=== PATIENT | female | born 1955 | race Caucasian/White ===

== ENCOUNTER 2022-11-08 07:05 | Observation (INO) ==
--- NOTE | 2022-09-14 10:58 | PAT Medication Instructions ---
Medication Instructions Date of Service September 14, 2022 Home Medications Medication Instructions Recorded albuterol sulfate 90 mcg/actuation 2 puff inhalation Q6H PRN 10/06/21 aerosol inhaler (Ventolin HFA) shortness of breath #18 grams metformin 500 mg tablet 500 mg PO BID #60 tabs 01/26/22 atorvastatin 10 mg tablet 10 mg PO QPM #90 tabs 07/02/22 meclizine 12.5 mg tablet 12.5 mg PO TID PRN dizziness #30 08/07/22 tabs tlxgxupnwwkg-lrjovejl-mxbdxn tablet 1 tab PO QAM cholecalciferol (vitamin D3) 50 mcg (2,000 unit) capsule 50 mcg PO QAM aspirin 81 mg tablet,delayed release 81 mg PO DAILY PRN albuterol sulfate 90 mcg/actuation aerosol inhaler (Ventolin HFA) 2 puff inhalation Q6H PRN metformin 500 mg tablet 500 mg PO BID atorvastatin 10 mg tablet 10 mg PO QPM meclizine 12.5 mg tablet 12.5 mg PO TID PRN famotidine 40 mg tablet 40 mg PO DAILY PRN lisinopril 10 mg tablet 10 mg PO QAM Continue as directed meclizine 12.5 mg tablet 12.5 mg PO TID PRN(if needed) DO NOT take the morning of surgery ycmqdnzdftan-prehezem-prezpt tablet 1 tab PO QAM cholecalciferol (vitamin D3) 50 mcg (2,000 unit) capsule 50 mcg PO QAM metformin 500 mg tablet 500 mg PO BID lisinopril 10 mg tablet 10 mg PO QAM Take morning of surgery With a small sip of water, OTHERWISE NOTHING TO EAT OR DRINK AFTER MIDNIGHT: aspirin 81 mg tablet,delayed release 81 mg PO DAILY PRN(unless directed otherwise by surgeon) albuterol sulfate 90 mcg/actuation aerosol inhaler (Ventolin HFA) 2 puff inhalation Q6H PRN(use if needed; please bring with you to hospital day of surgery if possible) famotidine 40 mg tablet 40 mg PO DAILY PRN(if needed) Take evening before surgery albuterol sulfate 90 mcg/actuation aerosol inhaler (Ventolin HFA) 2 puff inhalation Q6H PRN(if needed) metformin 500 mg tablet 500 mg PO BID atorvastatin 10 mg tablet 10 mg PO QPM Other Notes If you have any questions please call us at [phone] or [phone] or [phone] or [phone]
--- NOTE | 2022-09-17 14:22 | Anesthesiology Consultation ---
Date of Service September 17, 2022 Assessment & Plan (1) Encounter for pre-operative examination: - check BSG am DOS. - dyspnea with usual activities, case discussed in detail with Dr. Brooke who advised pt to have PCP clearance overall including dyspnea with usual activities. Awaiting PCP clearance. - abnormal UA, several day duration intermittent left sided low back pain: per staff with PCP, Dr. Ahmadi is reviewing sent workload note and will further address with patient. Pt made aware. - awareness with multiple procedures. Pt states also has high tolerance for pain medications requiring more doses for surgical procedures/dental procedures and requests consideration of this by anesthesiologist and surgeon. - Outpatient joint assessment: Patient is currently scheduled for inpatient pathway. If re-evaluated pending system levels during current pandemic/surgeon requests outpatient pathway, patient is not acceptable candidate for outpatient joint program from anesthesia standpoint. Chart Review Chart Review: Pending: Refer to Additional Notes / Consult section and Patient seen in Pre Admission Testing Teaching & Discussion Pre-Anesthesia Teaching/Discussion Notes: Instructed NPO after midnight before surgery, except medications with 15 cc of water. Medication instructions provided according to the PAT guidelines. History Surgery Operation Date: 10/04/22 12:25 Proposed Procedures p Right Anatomic or Reverse Shoulder Arthroplasty - Jevon Centeno MD Height/Weight Height: 5 ft Weight: 117.8 kg Allergies Allergy/AdvReac Type Severity Reaction Status Date / Time metronidazole Allergy Unknown Hives Verified 09/14/22 09:53 Sulfa (Sulfonamide Allergy Unknown Hives Verified 09/14/22 09:53 Antibiotics) Penicillins AdvReac Intermediate Rash Verified 09/14/22 09:53 ibuprofen AdvReac Mild Hives Verified 09/14/22 09:53 clarithromycin AdvReac Unknown Hives Unverified 09/14/22 09:53 fluoroquinolones Allergy Unknown Unknown Uncoded 09/14/22 09:53 Medications Home Medications Medication Instructions Recorded Confirmed Last Taken rpjrspwtxumh-xaqoznkj-tolitz tablet 1 tab PO QAM 03/03/19 09/14/22 Unknown cholecalciferol (vitamin D3) 50 50 mcg PO QAM 07/07/21 09/14/22 Unknown mcg (2,000 unit) capsule aspirin 81 mg tablet,delayed 81 mg PO DAILY PRN Pain 07/30/21 09/14/22 Unknown release albuterol sulfate 90 mcg/actuation 2 puff inhalation Q6H PRN 10/06/21 09/14/22 Unknown aerosol inhaler (Ventolin HFA) shortness of breath #18 grams metformin 500 mg tablet 500 mg PO BID #60 tabs 01/26/22 09/14/22 Unknown atorvastatin 10 mg tablet 10 mg PO QPM #90 tabs 07/02/22 09/14/22 Unknown meclizine 12.5 mg tablet 12.5 mg PO TID PRN dizziness #30 08/07/22 09/14/22 Unknown tabs famotidine 40 mg tablet 40 mg PO DAILY PRN gerd 09/14/22 09/14/22 Unknown lisinopril 10 mg tablet 10 mg PO QAM 09/14/22 09/14/22 Unknown Past Medical History Medical History (Updated 09/17/22 @ 14:38 by Estrellita Ponce PA-C) Asthma rare use of PRN inh-last use > 2 yrs Chronic back pain DM type 2 (diabetes mellitus, type 2) NIDDM GERD (gastroesophageal reflux disease) controlled, stable per pt History of blood transfusion History of kidney stones History of uterine cancer 5 years ago. treated surgically HLD (hyperlipidemia) HTN (hypertension) controlled, stable per pt Morbid obesity with BMI of 50.0-59.9, adult PONV (postoperative nausea and vomiting) denies needing scop patch Slow to wake up after anesthesia Patient denies h/o stroke, seizures, heart attack, heart failure, or blood clots. Exercise / Class Metabolic Activity III < 4 Walking/Shop/Light housework (SOB with usual activities ongoing x 1 yr; denies change or worsening; denies chest discomfort) Past Family History Family History Mother Alcohol abuse Father FH: kidney cancer Brother FH: kidney cancer Drug abuse Alcohol abuse Grandmother Cancer Uterine Uterine cancer Grandfather Diabetes Heart disease Sister PONV (postoperative nausea and vomiting) Slow to wake up after anesthesia Daughter PONV (postoperative nausea and vomiting) Denies family history of Ovarian cancer Prostate cancer Myocardial infarction Breast cancer Colorectal cancer Past Surgical History Surgical History History of ankle surgery Rt - cyst removal History of carpal tunnel release of both wrists History of colonoscopy History of cystoscopy History of lithotripsy History of open reduction and internal fixation (ORIF) procedure Rt wrist History of total abdominal hysterectomy and bilateral salpingo-oophorectomy Hx of nephrolithotomy with removal of calculi Status post breast reduction Past Anesthesia History Other (pt reports awareness during multiple procedures; sister and daughter with PONV) History of PONV No Hx of Motion Sickness and History of PONV (denies needing scop patch) Social History Smoking Status: Never smoker Do You Dip or Chew Tobacco: No Hx Alcohol Use: Yes Alcohol type: wine alcohol intake frequency: other Alcohol Intake Frequency Comment: once a month Hx Substance Use: No substance use type: does not use Review of Systems Pt reports several day duration of intermittent dull left sided back pain 03/09 when occurs which is like her usual "kidney stone pain" denies pain radiation, fever, chills, nausea, vomiting, abdominal pain, hematuria or dysuria. She states plans to f/u with PCP today. She denies pain currently. Occasional snoring, denies witnessed apneas. Patient denies chest pain, fever, chills, cough, wheezing, or palpitations. Physical Exam Vital Signs Vitals BP 120/80 P 71 TEMP 98.3 SP02 100% on RA RESP 18 Physical Full cervical extension range of motion without pain TMD < 3 finger breadths Mallampati Score 3 Dentition: intact, one chipped front upper tooth and multiple missing teeth; denies loose teeth, caps/crowns, implants or bridges Lungs: normal respiratory effort. Clear throughout to auscultation, no adventitious breath sounds Cardiac: regular rate and rhythm, no murmurs noted Carotid arteries: negative bruit bilat Lab Results Anesthesia Preop Results Results Anesthesia Widget: WBC 7.33 K/ul (4.8-10.8) 09/17/22 Hgb 14.1 g/dl (12.0-16.0) 09/17/22 Hct 42.3 % (34.1-44.9) 09/17/22 Plt 229 K/uL (130-400) 09/17/22 Na 144 mmol/L (136-145) 09/17/22 K 4.6 mmol/L (3.5-5.1) 09/17/22 Cl 112 mmol/L (98-107) H 09/17/22 CO2 25 mmol/L (21-32) 09/17/22 BUN 22 mg/dl (6-23) 09/17/22 Creat 1.54 mg/dl (0.6-1.2) H 09/17/22 Glucose Level 99 mg/dl (70-99(Fasting)) 09/17/22 PT 10.3 Seconds (9.0-12.0) 09/17/22 PTT 24.7 Seconds (21.0-31.0) 09/17/22 INR 1.0 (0.9-1.1) 09/17/22 HA1c 6.3 % (4.5-5.6) H 09/17/22 Urine Color Yellow 09/17/22 Urine Appearance Cloudy (Clear) A 09/17/22 Urine pH 5.0 (4.5-7.5) 09/17/22 Urine Specific [place] 1.015 (1.000-1.030) 09/17/22 Urine Protein Negative (Negative) 09/17/22 Urine Glucose (UA) Negative (Negative) 09/17/22 Urine Ketones Negative (Negative) 09/17/22 Urine Blood Negative (Negative) 09/17/22 Urine Nitrite Negative (Negative) 09/17/22 Urine Bilirubin Negative (Negative) 09/17/22 Urine Urobilinogen Negative (Negative) 09/17/22 Urine Leukocyte Esterase 2+ (Negative) H 09/17/22 Urine WBC (Auto) >30 /hpf (0-5) H 09/17/22 Urine RBC (Auto) 0-4 /hpf (0-4) 09/17/22 Urine Hyaline Casts (Auto) 1-5 /lpf (0-5) 09/17/22 Urine Epithelial Cells (Auto) 20-30 /lpf (0-5) H 09/17/22 Urine Bacteria (Auto) 4+ (Negative) H 09/17/22 Blood Type O Positive 09/17/22 Antibody Screen NEGATIVE 09/17/22 Testing Electrocardiogram Date: 09/17/22 NSR, rate 70 bpm Nonspecific T wave abnormality Chest X-Ray Date: 09/17/22 The lungs are clear. Cardiac silhouette is normal in size. No pleural effusions. No pneumothorax. IMPRESSION: No acute process. COVID-19 Risk Screen Screening Information COVID-19 Screen Date: 09/17/22 Exposure 21 Days Family/Household +COVID Last 21 Days: No Exposure 10 Days Any COVID Exposure Last 10 Days: No Symptoms Last 10 Days Experienced COVID Sx Last 10 Days: No + COVID 0-90 Days COVID + in Last 0-90 Days: No
--- NOTE | 2022-11-07 21:29 | History & Physical Report ---
Date of Service November 07, 2022 Assessment & Plan (1) Right rotator cuff tear arthropathy: We reviewed her medical history. She was cleared by her primary care physician. She wants to proceed with the planned procedure of right reverse total shoulder arthroplasty with concomitant biceps tenodesis. Informed consent was reviewed and confirmed. History of Present Illness Chief Complaint: Right shoulder pain and rotator cuff dysfunction Primary Care Provider: Sherly Ahmadi MD 67-year-old female with multiple manage medical problems presents with persi stent and progressive right shoulder pain despite over a year multimodal nonoperative management. At her last visit in August, she had rotator cuff dysfunction and persistent pain, with an MRI showing rotator cuff arthropathy. I did offer elective reverse total shoulder arthroplasty to address her symptoms. She wants to proceed with that option. No changes to her health history since August. She has been cleared by her primary care physician. Allergies Allergy/AdvReac Type Severity Reaction Status Date / Time ciprofloxacin Allergy Unknown Unknown Verified 11/06/22 06:28 metronidazole Allergy Unknown Hives Verified 10/05/22 15:10 Sulfa (Sulfonamide Allergy Unknown Hives Verified 10/05/22 15:10 Antibiotics) Penicillins AdvReac Intermediate Rash Verified 10/05/22 15:10 ibuprofen AdvReac Mild Hives Verified 10/05/22 15:10 clarithromycin AdvReac Unknown Hives Unverified 10/05/22 15:10 Home Medications Medication Instructions Recorded Confirmed Type wtgqtotxclzg-vilybtjx-eurfud tablet 1 tab PO QAM 03/03/19 10/05/22 History cholecalciferol (vitamin D3) 50 50 mcg PO QAM 07/07/21 10/05/22 History mcg (2,000 unit) capsule aspirin 81 mg tablet,delayed 81 mg PO DAILY PRN Pain 07/30/21 10/05/22 History release albuterol sulfate 90 mcg/actuation 2 puff inhalation Q6H PRN 10/06/21 10/05/22 Rx aerosol inhaler (Ventolin HFA) shortness of breath #18 grams atorvastatin 10 mg tablet 10 mg PO QPM #90 tabs 07/02/22 10/05/22 Rx famotidine 40 mg tablet 40 mg PO DAILY PRN gerd 09/14/22 10/05/22 History lisinopril 10 mg tablet 10 mg PO QAM 09/14/22 10/05/22 History metformin 500 mg tablet 500 mg PO BID #60 tabs 09/20/22 10/05/22 Rx meclizine 12.5 mg tablet 12.5 mg PO TID PRN dizziness #30 09/28/22 10/05/22 Rx tabs Past Med/Surg History Medical History Asthma rare use of PRN inh-last use > 2 yrs Chronic back pain DM type 2 (diabetes mellitus, type 2) NIDDM GERD (gastroesophageal reflux disease) controlled, stable per pt History of blood transfusion History of kidney stones History of uterine cancer 5 years ago. treated surgically HLD (hyperlipidemia) HTN (hypertension) controlled, stable per pt Morbid obesity with BMI of 50.0-59.9, adult PONV (postoperative nausea and vomiting) denies needing scop patch Slow to wake up after anesthesia Surgical History History of ankle surgery Rt - cyst removal History of carpal tunnel release of both wrists History of colonoscopy History of cystoscopy History of lithotripsy History of open reduction and internal fixation (ORIF) procedure Rt wrist History of total abdominal hysterectomy and bilateral salpingo-oophorectomy Hx of nephrolithotomy with removal of calculi Status post breast reduction Family History Mother Alcohol abuse Father FH: kidney cancer Brother FH: kidney cancer Drug abuse Alcohol abuse Grandmother Cancer Uterine Uterine cancer Grandfather Diabetes Heart disease Sister PONV (postoperative nausea and vomiting) Slow to wake up after anesthesia Daughter PONV (postoperative nausea and vomiting) Denies family history of Ovarian cancer Prostate cancer Myocardial infarction Breast cancer Colorectal cancer Social History Smoking Status: Never smoker Second Hand Exposure: Yes (as a child); Hx Alcohol Use: Yes Alcohol type: wine Alcohol Intake Frequency: Monthly or Less Hx Substance Use: No Preferred Language: Surinamese Communication Ability: Effective Visual Impairment: No Limitations Hearing Ability: Normal Manager Custom Required: No Beliefs That Will Affect Care: None marital status: Current Living Situation: Spouse current occupational status: retired current occupation: Homemaker How many Children do You have: 2 Feels Safe at Home: Yes Childhood Exposure to Second-Hand Smoke: Yes Dental Care, Regularly: No Physical Activity Frequency: Does not Exercise Physical Activity Frequency Comment: Limited by physical condition Seatbelt Use: always Sunscreen Use: Yes Assistive Devices: Glasses Review of Systems All systems reviewed & are unremarkable except as noted in HPI & below. Physical Exam Right shoulder: No overlying skin lesions. Neurovascular intact. Near full but painful arc of motion. Constitutional WD/WN, vitals as above Respiratory normal respiratory effort; no respiratory distress Cardiovascular Extremities: normal capillary refill; no edema Chest (Breasts) Chest: normal inspection of chest Skin no rashes, warm and dry Psychiatric A+Ox3, euthymic affect Results & Data Results & Data Laboratory Results . Diagnostic Findings MRI shows evidence of severe rotator cuff arthropathy and unrepairable supraspinatus and subscapularis tendon PG Care Time/CCT Total # of Minutes Spent Total Time Spent with Patient: Total time spent is greater than 50% in coordination of care (as documented) at patient's floor/unit and/or counseling patient: Coding Level of Care Code None Diagnoses Right rotator cuff tear arthropathy M75.101; M12.811
[~2022-11-08 07:05] MED LIST: BUPIVACAINE 0.5 % 5 MG/1 ML PF 10ML VIAL ONE; LR 15ML/HR IV SCH; LR 60ML/HR IV SCH; ceFAZolin 2000MG 2,000 MG/15 ML SYR IV SCH
--- NOTE | 2022-11-08 07:25 | History & Physical Bridge Note ---
Date of Service November 08, 2022 History & Physical Bridge Note I have examined the patient, reviewed the History & Physical and in the interval since the performance of the History & Physical I have noted the following changes of clinical significance: no changes noted
[2022-11-08] MEDS ORDERED: MIDAZOLAM HCL 1 MG/ML 2ML VIAL ONE (07:47)
[2022-11-08] MEDS ORDERED: KETAMINE 50 MG/5 ML SYRINGE ONE (07:47)
[2022-11-08] MEDS ORDERED: fentaNYL citrate 100 MCG/2 ML VIAL ONE (07:47)
[2022-11-08] MEDS ORDERED: LIDOCAINE 2% MPF LOCAL 5 ML VIAL INFIL ONE (07:50)
[2022-11-08] MEDS ORDERED: ONDANSETRON INJ 2 MG/ML 2 ML VIAL ONE (07:50)
[2022-11-08] MEDS ORDERED: DEXAMETHASONE SOD INJ 4 MG/ML VIAL ONE (07:50)
[2022-11-08] MEDS ORDERED: PROPOFOL IV EMULSION 10 MG/ML 20 ML VIAL IV ONE (07:50)
[2022-11-08] MEDS ORDERED: GLYCOPYRROLATE 0.2 MG/ML VIAL ONE (07:50)
[2022-11-08] MEDS ORDERED: ROCURONIUM BROMIDE 10 MG/ML 5 ML VIAL IV ONE (07:50)
--- NOTE | 2022-11-08 08:12 | Anesthesiology Consultation ---
Date of Service November 08, 2022 Assessment & Plan (1) Encounter for pre-operative examination: Chart Review Chart Review: Acceptable Risk for Surgery History Surgery Operation Date: 10/04/22 12:15 Proposed Procedures p Right Reverse Total Shoulder Arthroplasty, Open Biceps Tenodesis - Jevon Centeno MD Operation Date: 11/08/22 08:35 Proposed Procedures p Right Reverse Total Shoulder Arthroplasty, Open Biceps Tenodesis - Jevon Centeno MD Height/Weight Height: 5 ft Weight: 118.7 kg Allergies Allergy/AdvReac Type Severity Reaction Status Date / Time ciprofloxacin Allergy Unknown Unknown Verified 11/08/22 07:42 metronidazole Allergy Unknown Hives Verified 11/08/22 07:42 Sulfa (Sulfonamide Allergy Unknown Hives Verified 11/08/22 07:42 Antibiotics) Penicillins AdvReac Intermediate Rash Verified 11/08/22 07:42 ibuprofen AdvReac Mild Hives Verified 11/08/22 07:42 clarithromycin AdvReac Unknown Hives Verified 11/08/22 07:42 Medications Home Medications Medication Instructions Recorded Confirmed Last Taken [id number]-irzydnwh-eglvnp tablet 1 tab PO QAM 03/03/19 11/08/22 11/07/22 09:00 cholecalciferol (vitamin D3) 50 50 mcg PO QAM 07/07/21 11/08/22 11/07/22 09:00 mcg (2,000 unit) capsule aspirin 81 mg tablet,delayed 81 mg PO DAILY PRN Pain 07/30/21 11/08/22 10/27/22 14:00 release albuterol sulfate 90 mcg/actuation 2 puff inhalation Q6H PRN 10/06/21 11/08/22 Unknown aerosol inhaler (Ventolin HFA) shortness of breath #18 grams atorvastatin 10 mg tablet 10 mg PO QPM #90 tabs 07/02/22 11/08/22 11/07/22 14:00 famotidine 40 mg tablet 40 mg PO DAILY PRN gerd 09/14/22 11/08/22 11/07/22 23:00 lisinopril 10 mg tablet 10 mg PO QAM 09/14/22 11/08/22 11/07/22 09:00 metformin 500 mg tablet 500 mg PO BID #60 tabs 09/20/22 11/08/22 11/07/22 21:00 meclizine 12.5 mg tablet 12.5 mg PO TID PRN dizziness #30 09/28/22 11/08/22 Unknown tabs Active Medications Generic Name Dose Route Start Last Admin Trade Name Dominic PRN Reason Stop Dose Admin Lactated Ringer's 1,000 mls @ 15 mls/hr 11/08/22 06:00 11/08/22 07:56 Lr IV 11/09/22 05:59 15 mls/hr .Q24H FABIAN Administration Lactated Ringer's 1,000 mls @ 60 mls/hr 11/08/22 06:00 11/08/22 07:56 Lr IV 11/08/22 22:39 Not Given .[id number] FABIAN NPO Date Last Intake of Fluids: 11/07/22 Time Last Intake of Fluids: 23:55 Date Last Intake of Solids: 11/07/22 Time Last Intake of Solids: 23:30 Past Medical History Medical History Asthma rare use of PRN inh-last use > 2 yrs Chronic back pain DM type 2 (diabetes mellitus, type 2) NIDDM GERD (gastroesophageal reflux disease) controlled, stable per pt History of blood transfusion History of kidney stones History of uterine cancer 5 years ago. treated surgically HLD (hyperlipidemia) HTN (hypertension) controlled, stable per pt Morbid obesity with BMI of 50.0-59.9, adult PONV (postoperative nausea and vomiting) denies needing scop patch Slow to wake up after anesthesia Past Family History Family History Mother Alcohol abuse Father FH: kidney cancer Brother FH: kidney cancer Drug abuse Alcohol abuse Grandmother Cancer Uterine Uterine cancer Grandfather Diabetes Heart disease Sister PONV (postoperative nausea and vomiting) Slow to wake up after anesthesia Daughter PONV (postoperative nausea and vomiting) Denies family history of Ovarian cancer Prostate cancer Myocardial infarction Breast cancer Colorectal cancer Past Surgical History Surgical History History of ankle surgery Rt - cyst removal History of carpal tunnel release of both wrists History of colonoscopy History of cystoscopy History of lithotripsy History of open reduction and internal fixation (ORIF) procedure Rt wrist History of total abdominal hysterectomy and bilateral salpingo-oophorectomy Hx of nephrolithotomy with removal of calculi Status post breast reduction Social History Smoking Status: Never smoker Do You Dip or Chew Tobacco: No Hx Alcohol Use: Yes Alcohol type: wine alcohol intake frequency: other Alcohol Intake Frequency Comment: once a month Hx Substance Use: No substance use type: does not use Physical Exam Vital Signs Last Vital Signs Temp 37 C 11/08/22 07:34 Pulse 87 11/08/22 07:34 Resp 20 11/08/22 07:34 BP 185/100 H 11/08/22 07:34 Pulse Ox 98 11/08/22 07:34 O2 Del Method 11/08/22 07:34 Testing Laboratory Results 11/08/22 07:37 POC Glucose 105 H Laboratory Tests 09/17/22 10/10/22 14:52 12:56 Hgb 14.1 Plt Count 229 Potassium 4.3 Creatinine 1.22 H Electrocardiogram Date: 09/17/22 Findings: + NSR @ (70) and + NSST changes
[2022-11-08] MEDS ORDERED: ONDANSETRON INJ 2 MG/ML 2 ML VIAL IV PRN ×2 (08:23→13:35)
[2022-11-08] MEDS ORDERED: fentaNYL citrate 100 MCG/2 ML VIAL IV PRN (08:23)
[2022-11-08] MEDS ORDERED: LABETALOL HCL IV 5 MG/ML 20ML IV PRN (08:23)
[2022-11-08] MEDS ORDERED: ATROPINE SULFATE 0.1 MG/ML 10ML SYR IV PRN (08:23)
[2022-11-08] MEDS ORDERED: PROMETHAZINE HCL 6.25 MG in SODIUM CHLORIDE 0.9% 50 ML IV PRN (08:23)
[2022-11-08] MEDS ORDERED: PHENYLEPHRINE HCL 10 MG/ML VIAL ONE (10:08)
[2022-11-08] MEDS ORDERED: KETOROLAC 30 MG/ML VIAL ONE (10:08)
[2022-11-08] MEDS ORDERED: TRANEXAMIC ACID / 0.7% NACL 1000MG/100ML BAG IV ONE (11:04)
[2022-11-08] MEDS ORDERED: SUGAMMADEX SODIUM 200 MG/2 ML VIAL IV ONE (12:10)
--- NOTE | 2022-11-08 12:43 | Operative Report ---
PG Post Operative Report Pre & Post Diagnosis Operation Date: 10/04/22 12:15 <No data on this case meets the specified criteria> Operation Date: 11/08/22 08:35 Pre-Op Diagnosis: Right Rotator Cuff Tear Arthropathy Post-Op Diagnosis: Right Rotator Cuff Tear Arthropathy I identified the patient and participated in the time-out.: Yes Procedure Operation Date: 10/04/22 12:15 <No data on this case meets the specified criteria> Operation Date: 11/08/22 08:35 Actual Procedures p Right Reverse Total Shoulder Arthroplasty (Right) - Jevon Centeno MD Surgeon Jevon Centeno MD Counseling Services Director Phil Campos PA-C Estimated Blood Loss 100 Findings See Below [employer] comprehensive reverse shoulder arthroplasty was performed: Stem14 mm micro, baseplatesmall augmented posterosuperior, glenosphere[36 mm standard], humeral tray36 standard +0 tray, poly [36 mm standard], central screw 6.5 mm x 25 mm, all locking peripheral screws 4.75 x [15]mm, 4.75 x [15]mm, 4.75 x 20 mm, and 4.75 x 20 mm EXAMINATION UNDER ANESTHESIA: Preoperative exam under anesthesia revealed the following: [120] degrees of forward flexion, [60] degrees external rotation at t he side, 120 degrees of abduction, [90] degrees of external rotation and [30] degrees of internal rotation with the arm abducted. Postoperatively, range of motion parameters after implantation of prosthesis revealed a stable prosthesis with range of motion parameters as follows: [130] of forward flexion, 70 of external rotation at the side, [90] of abduction, [90] of external rotation with the arm abducted, 30 of internal rotation with the arm abducted. The patient's safe range of motion included the ability to get to the back of her head. Internal rotation to the belly without significant tension. Subscapularis repaired with minimal tension using 3 Arthrex #5 FiberWires. Bicep tendon was chronically ruptured and absent. Specimens Humeral head for pathology Drains none Anesthesia Type General Regional Complications none Disposition Accompanied Patient To Recovery: No Disposition: Recovery Room Indications 67-year-old female with chronic right shoulder pain and a physical exam and advanced imaging demonstrating rotator cuff arthropathy. Discussed treatment options in detail, as outlined in the preoperative clinic notes. In August, we had both determined that her next treatment option was a reverse total shoulder arthroplasty. I reviewed the risks and benefits and alternatives to this procedure in detail. Informed consent was documented in the clinic. Surgery was delayed for healthy medical work-up. Once clearances were obtained, she was determined to proceed with the surgery. Informed consent was reviewed and confirmed today. Description of Procedure The patient was identified in the preoperative holding area. The operative extremity was marked. Regional block was administered by Anesthesia. The patient was then brought to the operating room and placed supine. Preliminary time-out procedure was performed. All were in agreement. General endotracheal anesthesia was induced without any issues. The patient was sat up in around 40-45 degrees of inclination in the beachchair position. Exam under anesthesia was performed confirming the above findings. Preoperative antibiotics were administered. Sequential compressive devices were placed on her bilateral lower extremities for DVT prophylaxis. Bony prominences were inspected, well-padded and free of any evidence for peripheral nerve compression. The operative upper extremity was then prepped and draped in a normal standard fashion, with use of the Arthrex Trimano arm positioner. Prior to incision, a second time-out procedure was performed confirming the patient, site, laterality and the procedure. All were in agreement. 1. Right shoulder open reverse total shoulder replacement with augmented glenoid baseplate with patient specific guide: A deltopectoral incision was utilized. Incision was carried out sharply and with electrocautery through the skin and subcutaneous tissues. The deltopectoral interval was developed. The cephalic vein was taken laterally. Subdeltoid space was developed bluntly. A deltoid brown retractor was placed to retract the deltoid laterally and superiorly. 1 cm of the superior border of the pectoralis major tendon insertion site was released in standard fashion to improve exposure. Clavipectoral fascia was removed with electrocautery. Extensive subacromial bursitis was encountered and this was completely removed with a Bovie. The lateral aspect of the conjoined tendon was then followed to its insertion site on the coracoid. The conjoined tendon was retracted medially. The biceps tendon was atrophic and retracted. I did not feel a tenodesis was worthwhile or possible. A sharp Hohmann retractor was then placed into the interval and into the joint. Subscapularis tendon was still present with a high-grade partial tear and attached on the lesser tuberosity. The articular surface of the humeral head could be appreciated. The subscapularis tendon was then tagged with two #5 Ti-Cron sutures to gain control. The capsule with the subscapularis tendon was then released up the inferior humeral neck as one layer. The humeral head dislocated with successive extension and external rotation. Visualization of the humeral head revealed significant minimal osteoarthritis and wear, as expected. The supraspinatus was absent. The infraspinatus was attached posteriorly. The greater tuberosity footprint was bare. The top of the humeral head was identified. A starting awl was used sound the humeral canal. The bone quality was moderate. We opted to set the retroversion of the humeral cut at around 30 degrees of retroversion her circle retroversion. The humeral head resection was then planned in parallel fashion to the guide. Her axillary soft tissue was excessive and we cannot get the guide to sit appropriately. I then opted to do a freehand humeral head cut in line with the circle humeral neck. This was checked by a 45 degree extra- medullary guide. Sequential reaming was carried out up to a size 15 as the maximal stem size. Successive trial broaches were then broached up to a size 15, which gave us excellent press-fit. The trial stem was left in place. We then proceeded over to glenoid. An anterior glenoid neck retractor was placed. The MGHL and SGHL were released off of the muscular portion of the subscapularis being mindful of palpating and identifying the axillary nerve to make sure it was free of injury during releases. Next, the interval between the IGHL and the muscular portions of the subscapularis was identified. My finger was on the axillary nerve to protect it during releases. The IGHL was then released up to around the 7 o'clock position. A blunt retractor was then placed to retract the humerus posteriorly. A sharp Hohmann retractor was placed at the 12 o'clock position. The glenoid deformity was evaluated with assistance with the bone model. Extraneous capsulolabral tissue was dissected to reveal the bone anatomy. This confirmed our decision to proceed with preoperative virtual planning. The arm was placed around 30 degrees of flexion, 90 degrees of external rotation and 30 degrees of abduction to distract the humerus posteriorly. Labrum was circumferentially removed including the biceps tendon stump with a Bovie. A patient specific guide was used to place an initial guide pin, followed by the more superior pin. The patient specific guide was then removed. The custom reamer guide was placed on the superior pin and the reamer was brought down the central pin. Reaming was conducted based on the guide. Irrigation was used and we confirmed adequate reaming. The base protector was then fastened with a screw to protect the surface from the augment reamer. The augment reamer sufficiently removed the cartilage surface. Copious irrigation was performed to irrigate out the joint. A 25 mm small augment baseplate, with wedge placed postero-superior and a 25 mm threaded screw was then placed. For peripheral locking screws were placed. The final construct appeared to be extremely strong as the entire glenoid and scapula moved together as one unit confirming excellent fixation of the baseplate. Next, a 36 mm inferior offset set at position B glenosphere was chosen given our preop plan and position of the central screw for bone purchase. The glenosphere was then seated into the baseplate and impacted onto the loving taper. A sims was used to test fixation, before resetting with additional malletting. The joint was then copiously irrigated. Humerus was then brought back into view with external rotation, deltoid brown retractor and multiple blunt Homans. A trial tray was then placed that would best accommodate her anatomy. The humerus was then reduced onto the glenoid with the arm in abduction and external rotation. The arm was taken out of the maza, taken through a physiologic range of motion. No evidence for impingement. No evidence for kick off. No shuck. Thus, the trials would be a most appropriate for stability. Next, the trial humeral component was removed. The final stem prosthesis was then brought onto the field. Final tray insert as well as the poly components were opened. Using the trial component, the final humeral component with the tray and poly were made on the back table, matching the trial implant. Humeral canal was copiously irrigated. Two 2.0 mm drill holes were then placed in the bicipital groove just lateral to the lesser tuberosity. Two #5 FiberWire sutures were placed through these holes and clamped aside for later subscapularis repair. The final humeral component was then brought back on to the field and seated firmly into the humerus. Excellent press-fit was achieved. Thus, this completed the humeral component implantation. With the final components in place, humeral component was then reduced onto the glenosphere and final postoperative range of motion assessment was performed. Stability confirmed. The subscapularis was then repaired to the humerus using a Arvind-Johnny configuration. This completed the open reverse total shoulder replacement. The wound was copiously irrigated. The deltopectoral incision was closed with continuous # #1 Vicryl suture. Subcutaneous tissues were closed with 2-0 Vicryl suture in buried interrupted fashion and skin closed with grace. The wound was dressed with sterile Xeroform, plain gauze, ABD and contained by Tegaderms The patient was placed in a standard sling and turned over to the anesthesia team. The patient tolerated procedure well, was extubated in the operating without complication, and transferred to the PACU in stable condition. DISPOSITION: The patient will remain in sling for a total of 6 weeks. Hand, wrist, and elbow range of motion exercises may be initiated. After 6 weeks, the sling will be discontinued. Formal therapy will be initiated starting with gentle passive range of motion and active range of motion. No strengthening will be permitted before 12 weeks. When strengthening is allowed, only gentle strengthening will be allowed. Physician export sales assistant attestation: Phil Campos PA-C was present and scrubbed for the duration of the case. He was essential to prepping/draping, patient positioning, retraction, and assistance with wound closure. I attest to the content of the Intraoperative Record and any orders documented therein. Any exceptions are noted below.
--- NOTE | 2022-11-08 13:26 | XRay Report ---
XR shoulder RT min 2V routine CLINICAL HISTORY: Post shoulder surgery COMPARISON STUDY: Right shoulder 06/14/2020. FINDINGS: Status post reverse right total shoulder arthroplasty. The hardware appears intact. No frac ture or dislocation. Skin grace are in place. IMPRESSION: Status post reverse right total shoulder arthroplasty. No evidence for hardware complica tion. ACT 112: Negative or not required by law. Electronically signed by: Valdemar Sahu M.D. 11/08/2022 1:25 PM
[2022-11-08] MEDS ORDERED: FAMOTIDINE 40 MG TABLET PO PRN (13:35)
[2022-11-08] MEDS ORDERED: METOCLOPRAMIDE HCL INJ 5 MG/ML 2 ML VIAL IV PRN (13:35)
[2022-11-08] MEDS ORDERED: NALOXONE HCL 0.4 MG/1 ML VIAL/CARP IV PRN (13:35)
[2022-11-08] MEDS ORDERED: ALBUTEROL HFA 8 GM INHALER INH PRN (13:35)
[2022-11-08] MEDS ORDERED: MAGNESIUM HYDROXIDE SUSP 30 ML UDC PO PRN (13:35)
[2022-11-08] MEDS ORDERED: MECLIZINE 12.5 MG TAB PO PRN (13:35)
[2022-11-08] MEDS ORDERED: bisacodyL 10 MG SUPP PR PRN (13:35)
[2022-11-08] MEDS ORDERED: ASPIRIN 81 MG ECTAB PO PRN (13:35)
[2022-11-08] MEDS ORDERED: oxyCODONE HCL IR 5 MG TAB (IMMEDIATE RELEASE) PO PRN (13:35)
[2022-11-08] MEDS: SODIUM CHLORIDE 0.9% 1000ML 1,000 ML IV SCH ×2 (13:41→20:55)
--- NOTE | 2022-11-08 14:10 | Anesthesiology Progress Note ---
Date of Service November 08, 2022 Anesthesia Post Procedure Vital Signs Vital Signs: Temp Pulse Pulse Resp BP Pulse Ox O2 Del Method 11/08/22 13:30 36.6 C 97 H 16 133/83 95 Room Air 11/08/22 13:16 36.4 C L 83 13 130/82 94 Room Air 11/08/22 13:06 83 15 126/82 94 Oxymask 11/08/22 12:56 85 19 134/72 99 Oxymask 11/08/22 12:46 36.1 C L 86 16 120/79 96 Oxymask 11/08/22 07:34 37 C 87 20 185/100 H 98 Room Air O2 Flow Rate 11/08/22 13:30 11/08/22 13:16 11/08/22 13:06 4 11/08/22 12:56 6 11/08/22 12:46 10 11/08/22 07:34 Transfer of Care Handoff Completed per policy Notes Mental Status: alert / awake / arousable Patient Amnestic to Procedure: Yes Nausea / Vomiting: adequately controlled Pain: adequately controlled Airway Patency, RR, SpO2: stable & adequate BP & HR: stable & adequate Hydration State: stable & adequate Anesthetic Complications: no major complications apparent
[2022-11-08] MEDS: ACETAMINOPHEN 500 MG TAB PO SCH ×2 (15:13→22:13)
[2022-11-08] MEDS ORDERED: PHARMACY GLYCEMIC MGMT CONSULT PRN (16:40)
[2022-11-08] MEDS ORDERED: metFORMIN HCL 500 MG TAB PO SCH (17:00)
[2022-11-08] MEDS: INSULIN ASPART PER UNIT SC SCH ×2 (19:17→20:40)
[2022-11-08] MEDS: ceFAZolin 2000MG 2,000 MG/15 ML SYR IV SCH (19:30)
[2022-11-08] MEDS: DOCUSATE SODIUM 100 MG CAP PO SCH (20:15)
[2022-11-08] MEDS ORDERED: ATORVASTATIN 10 MG TAB PO SCH (21:00)
[2022-11-08] MEDS ORDERED: LANTUS PER UNIT CHARGE SQ ONE (21:00)
[2022-11-08] MEDS ORDERED: SENNA 8.6 MG TAB PO SCH (21:00)
[2022-11-09] MEDS: ACETAMINOPHEN 500 MG TAB PO SCH (05:23)
[2022-11-09] MEDS: ceFAZolin 2000MG 2,000 MG/15 ML SYR IV SCH (05:23)
[2022-11-09 06:44] LABS: Basophils # (auto) 0.02 K/uL (0-0.2); Basophils % (auto) 0.2 %; Eosinophils # (auto) 0.01 K/uL (0-0.50); Eosinophils % (auto) 0.1 %; Hematocrit (blood only) 36.4 % (37.0-47.0); Hemoglobin 11.8 g/dl (12.0-16.0); Immature Granulocytes # (auto) 0.03 K/uL (0.01-0.20); Immature Granulocytes % (auto) 0.2 %; Lymphocytes # (auto) 3.09 K/uL (1.2-3.4); Lymphocytes % (auto) 24.4 %; Mean Corpuscular Hemoglobin 31.9 pg (25.0-34.0); Mean Corpuscular Hgb Conc 32.4 g/dL (32.0-36.0); Mean Corpuscular Volume 98.4 fL (80.0-100.0); Mean Platelet Volume 11.1 fL (9.4-12.4); Monocytes % (auto) 6.3 %; Neutrophils # (auto) 8.71 K/uL (1.40-6.50); Neutrophils % (auto) 68.8 %; Platelet Count 232 K/uL (130-400); RDW Coefficient of Variation 13.2 % (11.5-14.5); RDW Standard Deviation 47.6 fL (36.4-46.3); White Blood Count 12.66 K/ul (4.8-10.8)
[2022-11-09 07:01] LABS: Calcium 9.2 mg/dl (8.5-10.1); Potassium 4.4 mmol/L (3.5-5.1)
[2022-11-09 07:07] LABS: BUN Creatinine Ratio 15.3 (10-20); Creatinine Clr Calc Pharmacy 35.4 ml/min; Est GFR (African American) 33.4 ml/min; Est GFR (Non-African American) 28.8 ml/min
[2022-11-09] MEDS: INSULIN ASPART PER UNIT SC SCH (08:37)
[2022-11-09] MEDS: DOCUSATE SODIUM 100 MG CAP PO SCH (08:38)
[2022-11-09] MEDS ORDERED: MULTIVITAMIN MINERALS LUTEIN PO SCH (09:00)
[2022-11-09] MEDS ORDERED: CHOLECALCIFEROL 1,000 UNITS 25 MCG TAB PO SCH (09:00)
[2022-11-09] MEDS ORDERED: MULTIVITAMIN TAB PO SCH (09:00)
[2022-11-09] MEDS ORDERED: lisinopril 10 MG TAB PO SCH (09:00)
--- NOTE | 2022-11-09 09:05 | Orthopedic Progress Note ---
Date of Service November 09, 2022 Assessment & Plan (1) History of reverse total replacement of right shoulder joint: Making progress as expected on postop day 1. -PT and OT evaluations today. -Plan for discharge today pending those evaluations Subjective Pain is controlled but the block is still working. Tolerating diet. Has been walking around the room without assistance. Feels well and wants to go home. Review of Systems All systems reviewed & are unremarkable except as noted in HPI & below. Physical Exam Right shoulder: The dressing has minimal drainage. Sensation is intact to light touch but much diminished in particular in the axillary nerve distribution, as expected. She has active motion of all digits. The arm is well-perfused. Constitutional WD/WN, vitals as above no acute distress and not intoxicated appearing Respiratory normal respiratory effort; no labored breathing Cardiovascular Extremities: normal capillary refill Results & Data Results & Data Laboratory Results H & H 11/09/22 Range/Units 06:36 Hgb 11.8 L (12.0-16.0) g/dl Hct 36.4 L (37.0-47.0) % Diagnostic Findings Postop radiograph showed no implant complications. PG Care Time/CCT Total # of Minutes Spent Total Time Spent with Patient: Total time spent is greater than 50% in coordination of care (as documented) at patient's floor/unit and/or counseling patient: Coding Level of Care Code 37843 Post Operative Follow-Up Diagnoses History of reverse total replacement of right shoulder joint Z98.890
--- NOTE | 2022-11-12 10:19 | Discharge Summary ---
Date of Service November 12, 2022 Admission HPI (Per Admitting) 67-year-old female with multiple manage medical problems presents with persistent and progressive right shoulder pain despite over a year multimodal nonoperative management. At her last visit in August, she had rotator cuff dysfunction and persistent pain, with an MRI showing rotator cuff arthropathy. I did offer elective reverse total shoulder arthroplasty to address her symptoms. She wants to proceed with that option. No changes to her health history since August. She has been cleared by her primary care physician. Admission Exam (Per Admitting) Right shoulder: No overlying skin lesions. Neurovascular intact. Near full but painful arc of motion. Principal Diagnosis Same as "Discharge Diagnosis" noted below under Discharge Instructions. Discharge Exam Right shoulder: The dressing has minimal drainage. Sensation is intact to light touch but much diminished in particular in the axillary nerve distribution, as expected. She has active motion of all digits. The arm is well-perfused. Discharge Data Procedures Performed Operation Date: 10/04/22 12:15 <No data on this case meets the specified criteria> Operation Date: 11/08/22 08:35 Actual Procedures p Right Reverse Total Shoulder Arthroplasty, Open Biceps Tenodesis(Right) - Jevon Centeno MD Ordered Studies 11/08/22 05:00 US - OR guided needle placemen Routine Hospital Course (1) History of reverse total replacement of right shoulder joint: Admitted after elective reverse TSA of right shoulder. She had no post operative complications and was discharged home on POD 1. PG Care Time/CCT Total # of Minutes Spent Total Time Spent with Patient: Total time spent is greater than 50% in coordination of care (as documented) at patient's floor/unit and/or counseling patient: Discharge Plan Discharge Items Patient Disposition: Home - Home Health Services Reason For Visit: Right Rotator Cuff Tear Arthropathy Discharge Diagnosis: Same as above. Activity: Per Instructions section Non-emergency contact: Surgeon Call non-emergency contact if: you have any medication questions, your pain is not controlled and your temperature is above 101 Follow-up/Referrals: Sherly Ahmadi MD [Primary Care Provider] - Jevon Centeno MD [Surgeon] - Diet: Regular Addtl Attending Provider Instructions: Jevon Centeno M.D. [facility] [address], [place] [address] SHOULDER REPLACEMENT PROCEDURES WOUND CARE: Leave your dressing in place and keep the area clean and dry. After 3 days, you may remove your dressing. DO NOT REMOVE ANY LUIS. After removing your dressing, you may begin to shower. Do not soak the incision. Allow gentle soap and water to run over the wound(s) and pat dry. Please cover the incision(s) with a clean, dry dressing, as needed. Do not use any ointments or topical medications unless directed by your surgeon. Do not submerse the incisions in water no pools, oceans, lakes, jacuzzis, bathtubs, etc for at least 3 weeks. ACTIVITY: Remain in the sling provided. Do not lift anything heavier than a cup of coffee with that hand. You may type or use a keyboard as tolerated. You may come out of the sling for careful hygiene and Range of Motion exercises, only. Please perform ROM (range of motion) exercises at least three times daily: 1. Wrist flexion and extension 2. Finger pump 3. Elbow flexion/extension and forearm rotation 4. Supported Codmans Exercises come out of sling, dangle your affected arm. Use your nonoperative (good) arm to support your operative (getting better!) arm at the elbow. Gently rotate/swing your operative arm in a pendulum motion for 1-2 minutes. Rest. Repeat three times. Do not reach out to your side (do not rotate your hand laterally NO EXTERNAL ROTATION) PAIN CONTROL: Use frequent ice to reduce amount of pain medications. Use for 30 minutes per hour. Do not leave in place longer than 30 minutes, especially when your block is in effect, to prevent frostbite or thermal injury. Medications: 1. Oxycodone (OxyIR) 1-2 tablet(s) orally every 4 hours for pain as needed. Use with Tylenol. Begin tapering OxyIR as soon as possible: reduce from 2 to 1 pills per dose, then spread out the doses over greater time intervals, then try to use only for therapy or for comfort while sleeping. Continue to use regular Tylenol until pain subsides. 2. Tylenol (325mg): 3 tablets every 8 hours orally. Regular dosing of Tylenol is an important part of your baseline pain control. Do not taper Tylenol until you have successfully tapered off of regular OxyIR. Do not take more than 3000mg of Tylenol per day. 3. Zofran 1 tablet orally every 6 hours as needed for nausea related to anesthesia, pain, and narcotic medications OVER THE COUNTER: Narcotics will cause constipation. Colace and or Miralax can help while you are taking oxycodone or other narcotics. 4. Colace (100mg): take 1-2 tabs twice daily to avoid constipation from OxyIR or other narcotics. 5. Miralax 1 tablespoon in a glass of water 2 times daily until normal bowel movements FOLLOWUP: 1. Ortho Clinic with Dr. Centeno: You should be seen in 10-14 days. Please call immediately to schedule if you do not have an appointment. 2. PHYSICAL THERAPY: It is OK to be seen by your therapist before the orthopedic postop appointment, if a specific consult has been placed. Pending Studies at Discharge: No Stand-Alone Forms: [facility] Medic[facility] and DC Order Prescriptions: New ondansetron HCl 4 mg tablet 4 mg PO Q6H PRN (Reason: nausea and vomiting) Qty: 12 0RF oxycodone 5 mg tablet 5 - 10 mg PO Q4H PRN (Reason: pain, initial therapy) Qty: 18 0RF Rx Instructions: 1-2 tabs every 4 hours as needed for pain; maximum 6 tabs daily Continued albuterol sulfate [Ventolin HFA] 90 mcg/actuation HFA aerosol inhaler 2 puff INH Q6H PRN (Reason: shortness of breath) Qty: 18 5RF Label Comments: Patient has inhaler, has not used in a year. atorvastatin 10 mg tablet 10 mg PO QPM Qty: 90 3RF metformin 500 mg tablet 500 mg PO BID Qty: 60 5RF meclizine 12.5 mg tablet 12.5 mg PO TID PRN (Reason: dizziness) Qty: 30 1RF cholecalciferol (vitamin D3) 50 mcg (2,000 unit) capsule 50 mcg PO QAM ruarlaqscfyk-zxnhbqpq-rxrtjj tablet 1 tab PO QAM aspirin 81 mg Tablet,Delayed Release (Dr/Ec) 81 mg PO DAILY PRN (Reason: Pain) famotidine 40 mg tablet 40 mg PO DAILY PRN (Reason: gerd) lisinopril 10 mg tablet 10 mg PO QAM Admission Data Admit Date/Time: 11/08/22 12:48 Attending Provider: Jevon Centeno Admit Provider: Jevon Centeno Primary Care Provider: Sherly Ahmadi Other Providers: Randall,Home Health Other Interventions: Discharge Summary Assessment (RN) Last Done: 11/09/22 09:58
== END 2022-11-09 12:59 | disposition home health service (06) ==
LOC: ASU 07:05 → 3E 07:05

== ENCOUNTER 2023-02-08 08:21 | Observation (INO) ==
--- NOTE | 2022-10-24 12:58 | Anesthesiology Consultation ---
Date of Service October 24, 2022 Assessment & Plan (1) Encounter for pre-operative examination: Plan - awaiting PCP response regarding dyspnea on exertion. - check BSG am DOS. -awareness with multiple procedures. Pt states also has high tolerance for pain medications requiring more doses for surgical procedures/dental procedures and requests consideration of this by anesthesiologist and surgeon. - PCP 10/05/22 [place]: "...Repeat labs reviewed. Pt at acceptable risk to proceed with planned procedure...Scheduled for right shoulder surgery on 11/[address] Centeno. She is feeling well, no acute complaints. Reviewed EKG, CXR, most recent labs, recommend repeat bmp given increase from baseline creatinine. If repeat labs acceptable, will provide medical clearance at that time..." - Outpatient joint assessment: Patient is currently scheduled for inpatient pathway. If re-evaluated pending system levels during current pandemic/surgeon requests outpatient pathway, patient is not acceptable candidate for outpatient joint program from anesthesia standpoint. Chart Review Chart Review: Pending: Refer to Additional Notes / Consult section and Patient NOT seen in Pre Admission Testing History Surgery Operation Date: 01/04/23 07:00 Proposed Procedures p Left Total Knee Arthroplasty - Kev Courtney, Height/Weight Height: 5 ft Weight: 117 kg Allergies Allergy/AdvReac Type Severity Reaction Status Date / Time metronidazole Allergy Unknown Hives Verified 10/05/22 15:10 Sulfa (Sulfonamide Allergy Unknown Hives Verified 10/05/22 15:10 Antibiotics) Penicillins AdvReac Intermediate Rash Verified 10/05/22 15:10 ibuprofen AdvReac Mild Hives Verified 10/05/22 15:10 clarithromycin AdvReac Unknown Hives Unverified 10/05/22 15:10 fluoroquinolones Allergy Unknown Unknown Uncoded 10/05/22 15:10 Medications Home Medications Medication Instructions Recorded Confirmed Last Taken wpfuoyppfoow-dboiklwp-gvzkpi tablet 1 tab PO QAM 03/03/19 10/05/22 Unknown cholecalciferol (vitamin D3) 50 50 mcg PO QAM 07/07/21 10/05/22 Unknown mcg (2,000 unit) capsule aspirin 81 mg tablet,delayed 81 mg PO DAILY PRN Pain 07/30/21 10/05/22 Unknown release albuterol sulfate 90 mcg/actuation 2 puff inhalation Q6H PRN 10/06/21 10/05/22 Unknown aerosol inhaler (Ventolin HFA) shortness of breath #18 grams atorvastatin 10 mg tablet 10 mg PO QPM #90 tabs 07/02/22 10/05/22 Unknown famotidine 40 mg tablet 40 mg PO DAILY PRN gerd 09/14/22 10/05/22 Unknown lisinopril 10 mg tablet 10 mg PO QAM 09/14/22 10/05/22 Unknown metformin 500 mg tablet 500 mg PO BID #60 tabs 09/20/22 10/05/22 Unknown meclizine 12.5 mg tablet 12.5 mg PO TID PRN dizziness #30 09/28/22 10/05/22 Unknown tabs Past Medical History Medical History Asthma rare use of PRN inh-last use > 2 yrs Chronic back pain DM type 2 (diabetes mellitus, type 2) NIDDM GERD (gastroesophageal reflux disease) controlled, stable per pt History of blood transfusion History of kidney stones History of uterine cancer 5 years ago. treated surgically HLD (hyperlipidemia) HTN (hypertension) controlled, stable per pt Morbid obesity with BMI of 50.0-59.9, adult PONV (postoperative nausea and vomiting) denies needing scop patch Slow to wake up after anesthesia Past Family History Family History Mother Alcohol abuse Father FH: kidney cancer Brother FH: kidney cancer Drug abuse Alcohol abuse Grandmother Cancer Uterine Uterine cancer Grandfather Diabetes Heart disease Sister PONV (postoperative nausea and vomiting) Slow to wake up after anesthesia Daughter PONV (postoperative nausea and vomiting) Denies family history of Ovarian cancer Prostate cancer Myocardial infarction Breast cancer Colorectal cancer Past Surgical History Surgical History History of ankle surgery Rt - cyst removal History of carpal tunnel release of both wrists History of colonoscopy History of cystoscopy History of lithotripsy History of open reduction and internal fixation (ORIF) procedure Rt wrist History of total abdominal hysterectomy and bilateral salpingo-oophorectomy Hx of nephrolithotomy with removal of calculi Status post breast reduction Social History Smoking Status: Never smoker Hx Alcohol Use: Yes Alcohol type: wine alcohol intake frequency: other Hx Substance Use: No substance use type: does not use Lab Results Anesthesia Preop Results Results Anesthesia Widget: WBC 7.33 K/ul (4.8-10.8) 09/17/22 Hgb 14.1 g/dl (12.0-16.0) 09/17/22 Hct 42.3 % (34.1-44.9) 09/17/22 Plt 229 K/uL (130-400) 09/17/22 Na 141 mmol/L (136-145) 10/10/22 K 4.3 mmol/L (3.5-5.1) 10/10/22 Cl 107 mmol/L (98-107) 10/10/22 CO2 29 mmol/L (21-32) 10/10/22 BUN 18 mg/dl (6-23) 10/10/22 Creat 1.22 mg/dl (0.6-1.2) H 10/10/22 Glucose Level 118 mg/dl (70-99(Fasting)) H 10/10/22 PT 10.3 Seconds (9.0-12.0) 09/17/22 PTT 24.7 Seconds (21.0-31.0) 09/17/22 INR 1.0 (0.9-1.1) 09/17/22 HA1c 6.3 % (4.5-5.6) H 09/17/22 Urine Color Yellow 09/17/22 Urine Appearance Cloudy (Clear) A 09/17/22 Urine pH 5.0 (4.5-7.5) 09/17/22 Urine Specific [place] 1.015 (1.000-1.030) 09/17/22 Urine Protein Negative (Negative) 09/17/22 Urine Glucose (UA) Negative (Negative) 09/17/22 Urine Ketones Negative (Negative) 09/17/22 Urine Blood Negative (Negative) 09/17/22 Urine Nitrite Negative (Negative) 09/17/22 Urine Bilirubin Negative (Negative) 09/17/22 Urine Urobilinogen Negative (Negative) 09/17/22 Urine Leukocyte Esterase 2+ (Negative) H 09/17/22 Urine WBC (Auto) 1-5 /hpf (0-5) 09/27/22 Urine RBC (Auto) 0-4 /hpf (0-4) 09/27/22 Urine Hyaline Casts (Auto) 0 /lpf (0-5) 09/27/22 Urine Epithelial Cells (Auto) >30 /lpf (0-5) H 09/27/22 Urine Bacteria (Auto) Negative (Negative) 09/27/22 Blood Type O Positive 09/17/22 Antibody Screen NEGATIVE 09/17/22 Testing Electrocardiogram Date: 09/17/22 NSR, rate 70 bpm Nonspecific T wave abnormality Chest X-Ray Date: 09/17/22 The lungs are clear. Cardiac silhouette is normal in size. No pleural effusions. No pneumothorax. IMPRESSION: No acute process.
--- NOTE | 2022-12-28 11:19 | PAT Medication Instructions ---
Medication Instructions Date of Service December 28, 2022 Home Medications Medication Instructions Recorded atorvastatin 10 mg tablet 10 mg PO QPM #90 tabs 07/02/22 metformin 500 mg tablet 500 mg PO BID #60 tabs 09/20/22 albuterol sulfate 90 mcg/actuation 2 puff inhalation Q6H PRN 11/23/22 aerosol inhaler (Ventolin HFA) shortness of breath #18 grams qkkiwrgqdtnz-plulvwfa-aciaga tablet 1 tab PO QAM cholecalciferol (vitamin D3) 50 mcg (2,000 unit) capsule 50 mcg PO QAM aspirin 81 mg tablet,delayed release 81 mg PO DAILY PRN atorvastatin 10 mg tablet 10 mg PO QPM famotidine 40 mg tablet 40 mg PO DAILY PRN metformin 500 mg tablet 500 mg PO BID albuterol sulfate 90 mcg/actuation aerosol inhaler (Ventolin HFA) 2 puff inhalation Q6H PRN Continue as directed famotidine 40 mg tablet 40 mg PO DAILY PRN(if needed) ASK your prescriber and surgeon aspirin 81 mg tablet,delayed release 81 mg PO DAILY PRN DO NOT take the morning of surgery asvqdgdysppw-ymhdhwdr-gpachp tablet 1 tab PO QAM cholecalciferol (vitamin D3) 50 mcg (2,000 unit) capsule 50 mcg PO QAM metformin 500 mg tablet 500 mg PO BID Take morning of surgery With a small sip of water, OTHERWISE NOTHING TO EAT OR DRINK AFTER MIDNIGHT: albuterol sulfate 90 mcg/actuation aerosol inhaler (Ventolin HFA) 2 puff inhalation Q6H PRN(use if needed; please bring with you to hospital day of surgery if possible) Take evening before surgery atorvastatin 10 mg tablet 10 mg PO QPM metformin 500 mg tablet 500 mg PO BID albuterol sulfate 90 mcg/actuation aerosol inhaler (Ventolin HFA) 2 puff inhalation Q6H PRN(if needed) Other Notes If you have any questions please call us at [phone] or [phone] or [phone] or [phone]
--- NOTE | 2023-01-02 14:01 | Anesthesiology Consultation ---
Date of Service January 02, 2023 Assessment & Plan (1) Encounter for pre-operative examination: Chart Review Chart Review: Acceptable Risk for Surgery (pending nephro office appt 01/14/23) and Patient seen in Pre Admission Testing - Awaiting nephro consult 01/14/23 - Check BSG AM DOS - Pt is NOT an Outpatient Joint candidate due to BMI Per PAT appt on 01/02/23, patient denies any recent travel or large group activities. Pt is vaccinated for Covid. Will leave to surgeon's discretion if preop Covid testing needed. Educated on importance of using Covid precautions one week prior to surgery Right TSA reverse 11/08/22= Done under GA with Grade 1 view with Goncalves #2. ETT #7.5. Atraumatic DL x 1 Teaching & Discussion Pre-Anesthesia Teaching/Discussion Notes: Instructed NPO after midnight before surgery,except medications with 15 cc of water. Medication instructions provided according to the PAT guidelines. History Surgery Operation Date: 02/08/23 07:00 Proposed Procedures p Left Total Knee Arthroplasty - Kev Courtney, Height/Weight Height: 5 ft Weight: 120.3 kg Allergies Allergy/AdvReac Type Severity Reaction Status Date / Time lisinopril AdvReac Intermediate Dizziness Verified 12/28/22 07:34 Penicillins AdvReac Intermediate Hives Verified 12/28/22 07:34 ibuprofen AdvReac Mild headaches Verified 12/28/22 07:34 with large amounts Medications Home Medications Medication Instructions Recorded Confirmed Last Taken elersknxutsb-xdtwtopb-gkgbnv tablet 1 tab PO QAM 03/03/19 12/28/22 11/07/22 09:00 cholecalciferol (vitamin D3) 50 50 mcg PO QAM 07/07/21 12/28/22 11/07/22 09:00 mcg (2,000 unit) capsule aspirin 81 mg tablet,delayed 81 mg PO DAILY PRN Pain 07/30/21 12/28/22 10/27/22 14:00 release atorvastatin 10 mg tablet 10 mg PO QPM #90 tabs 07/02/22 12/28/22 11/07/22 14:00 famotidine 40 mg tablet 40 mg PO DAILY PRN gerd 09/14/22 12/28/22 11/07/22 23:00 metformin 500 mg tablet 500 mg PO BID #60 tabs 09/20/22 12/28/22 11/07/22 21:00 albuterol sulfate 90 mcg/actuation 2 puff inhalation Q6H PRN 11/23/22 12/28/22 Unknown aerosol inhaler (Ventolin HFA) shortness of breath #18 grams Past Medical History Medical History Asthma rare use of PRN inh-last use > 2 yrs Chronic back pain CKD (chronic kidney disease) Seeing nephro 01/14/23 DM type 2 (diabetes mellitus, type 2) NIDDM GERD (gastroesophageal reflux disease) controlled, stable per pt History of blood transfusion s/p kidney stone surgery (years ago) History of kidney stones No recent issues History of uterine cancer s/p hysterectomy- no chemo or XRT HLD (hyperlipidemia) HTN (hypertension) controlled, stable per pt Morbid obesity with BMI of 50.0-59.9, adult Exercise / Class Metabolic Activity III < 4 Walking/Shop/Light housework (no chest pain or SOB with flat surface ambulation (walks slow due to knee pain)) Past Family History Family History Mother Alcohol abuse Father FH: kidney cancer Brother FH: kidney cancer Drug abuse Alcohol abuse Grandmother Cancer Uterine Uterine cancer Grandfather Diabetes Heart disease Sister PONV (postoperative nausea and vomiting) Slow to wake up after anesthesia Daughter PONV (postoperative nausea and vomiting) Denies family history of Ovarian cancer Prostate cancer Myocardial infarction Breast cancer Colorectal cancer Past Surgical History Surgical History H/O shoulder surgery Right Reverse Total Shoulder Arthroplasty History of ankle surgery Rt - cyst removal History of carpal tunnel release of both wrists History of cystoscopy History of lithotripsy History of open reduction and internal fixation (ORIF) procedure Rt wrist History of reverse total replacement of right shoulder joint History of total abdominal hysterectomy and bilateral salpingo-oophorectomy Hx of nephrolithotomy with removal of calculi PONV (postoperative nausea and vomiting) Slow to wake up after anesthesia Status post breast reduction Past Anesthesia History No Hx of Anesthesia Complications (with exception to slow to wake (groggy)- no issues with 10/2022 shoulder surgery ) and No Family Hx of Anesthesia Complications (with exception to daughter - PONV ) History of PONV No Hx of Motion Sickness and History of PONV Social History Smoking Status: Never smoker Hx Alcohol Use: Yes Alcohol type: wine alcohol intake frequency: a few times a month Hx Substance Use: No substance use type: does not use Review of Systems Hx of snoring - no sleep study Patient denies chest pain, shortness of breath, dyspnea on exertion, cough, wheezing, palpitations. No hx of seizures, stroke, [place]. No hx of blood clots. Physical Exam Vital Signs VITALS BP 164/93 (check BP at home- usually in 120-130s systolically) P 91 TEMP 98.3 SP02 100% RESP 16 Constitutional no acute distress ENMT Mouth: no TMJ clicking Thyromental Distance: > or= 3.5 Finger Breadths (3.5) Mallampati Class: II Missing molars Neck + thick neck; neck extension not limited Respiratory normal respiratory effort; no respiratory distress Auscultation: lungs clear to auscultation bilaterally; no wheezes Cardiovascular Rate/Rhythm: regular rate and regular rhythm Heart Sounds: no murmur Vessels: no carotid bruit Musculoskeletal Spine: no pain with cervical ROM Extremities: extremities normal to inspection Psychiatric Orientation: alert Lab Results Anesthesia Preop Results Results Anesthesia Widget: WBC 7.51 K/ul (4.8-10.8) 01/02/23 Hgb 13.2 g/dl (12.0-16.0) 01/02/23 Hct 41.6 % (37.0-47.0) 01/02/23 Plt 272 K/uL (130-400) 01/02/23 Na 141 mmol/L (136-145) 01/02/23 K 4.5 mmol/L (3.5-5.1) 01/02/23 Cl 105 mmol/L (98-107) 01/02/23 CO2 29 mmol/L (21-32) 01/02/23 BUN 19 mg/dl (6-23) 01/02/23 Creat 1.33 mg/dl (0.6-1.2) H 01/02/23 Glucose Level 103 mg/dl (70-99(Fasting)) H 01/02/23 PT 10.6 Seconds (9.0-12.0) 01/02/23 PTT 24.9 Seconds (21.0-31.0) 01/02/23 INR 1.0 (0.9-1.1) 01/02/23 HA1c 5.9 % (4.5-5.6) H 01/02/23 Blood Type O Positive 01/02/23 Antibody Screen NEGATIVE 01/02/23 Testing Laboratory Results Elevated creatinine - chronic and stable from previous Electrocardiogram Date: 09/17/22 NSR, rate 70 bpm Nonspecific T wave abnormality Chest X-Ray Date: 09/17/22 The lungs are clear. Cardiac silhouette is normal in size. No pleural effusions. No pneumothorax. IMPRESSION: No acute process. COVID-19 Risk Screen Screening Information COVID-19 Screen Date: 01/02/23 Exposure 21 Days Family/Household +COVID Last 21 Days: No Exposure 10 Days Any COVID Exposure Last 10 Days: No Symptoms Last 10 Days Experienced COVID Sx Last 10 Days: No + COVID 0-90 Days COVID + in Last 0-90 Days: No Risk Plan COVID Risk Plan: No Risk Identified Patient Education COVID Preop Screening Education Complete: Yes
--- NOTE | 2023-02-07 12:23 | History & Physical Report ---
Date of Service February 07, 2023 Assessment & Plan (1) Left knee DJD: We will proceed with a left total knee arthroplasty. Postoperatively she will be started on aspirin for DVT prophylaxis and kept overnight in the hospital for postoperative medical management. She plans to have the hospital set up home health for discharge. History of Present Illness Chief Complaint: Osteoarthritis of the left knee. Primary Care Provider: Sherly Ahmadi MD Donna is a pleasant 67-year-old female, who has been dealing with chronic worsening osteoarthritis of both knees with the left worse than right. She recently had a reverse shoulder arthroplasty by Dr. Centeno and is doing well with that. She is really struggling with her right knee. She is having trouble with walking any long distances. She is having trouble going up and down stairs. After failing years of conservative treatment, she has elected proceed with a left knee replacement. Allergies Allergy/AdvReac Type Severity Reaction Status Date / Time lisinopril AdvReac Intermediate Dizziness Verified 01/29/23 13:49 Penicillins AdvReac Intermediate Hives Verified 01/29/23 13:49 ibuprofen AdvReac Mild headaches Verified 01/29/23 13:49 with large amounts Home Medications Medication Instructions Recorded Confirmed Type ahgsjbpsvdax-fnmchdxh-nanzug tablet 1 tab PO QAM 03/03/19 01/29/23 History cholecalciferol (vitamin D3) 50 50 mcg PO QAM 07/07/21 01/29/23 History mcg (2,000 unit) capsule aspirin 81 mg tablet,delayed 81 mg PO DAILY PRN Pain 07/30/21 01/29/23 History release famotidine 40 mg tablet 40 mg PO DAILY PRN gerd 09/14/22 01/29/23 History metformin 500 mg tablet 500 mg PO BID #60 tabs 09/20/22 01/29/23 Rx albuterol sulfate 90 mcg/actuation 2 puff inhalation Q6H PRN 11/23/22 01/29/23 Rx aerosol inhaler (Ventolin HFA) shortness of breath #18 grams Past Med/Surg History Medical History Asthma rare use of PRN inh-last use > 2 yrs Chronic back pain CKD (chronic kidney disease) Seeing nephro 01/14/23 DM type 2 (diabetes mellitus, type 2) NIDDM GERD (gastroesophageal reflux disease) controlled, stable per pt History of blood transfusion s/p kidney stone surgery (years ago) History of kidney stones No recent issues History of uterine cancer s/p hysterectomy- no chemo or XRT HLD (hyperlipidemia) HTN (hypertension) controlled, stable per pt Morbid obesity with BMI of 50.0-59.9, adult Surgical History H/O shoulder surgery Right Reverse Total Shoulder Arthroplasty History of ankle surgery Rt - cyst removal History of carpal tunnel release of both wrists History of cystoscopy History of lithotripsy History of open reduction and internal fixation (ORIF) procedure Rt wrist History of reverse total replacement of right shoulder joint History of total abdominal hysterectomy and bilateral salpingo-oophorectomy Hx of nephrolithotomy with removal of calculi PONV (postoperative nausea and vomiting) Slow to wake up after anesthesia Status post breast reduction Family History Mother Alcohol abuse Father FH: kidney cancer Brother FH: kidney cancer Drug abuse Alcohol abuse Grandmother Cancer Uterine Uterine cancer Grandfather Diabetes Heart disease Sister PONV (postoperative nausea and vomiting) Slow to wake up after anesthesia Daughter PONV (postoperative nausea and vomiting) Denies family history of Ovarian cancer Prostate cancer Myocardial infarction Breast cancer Colorectal cancer Social History Smoking Status: Never smoker Second Hand Exposure: Yes ( A CHILD); Do You Dip or Chew Tobacco: No; Hx Alcohol Use: Yes Alcohol type: wine Alcohol Intake Frequency: Monthly or Less Hx Substance Use: No Preferred Language: Setswana Communication Ability: Effective Visual Impairment: No Limitations Hearing Ability: Normal Assistant Corporate Secretary Required: No Beliefs That Will Affect Care: None marital status: Current Living Situation: Spouse current occupational status: retired current occupation: Homemaker How many Children do You have: 2 Feels Safe at Home: Yes Safety Concerns: Feels Safe At This Time Childhood Exposure to Second-Hand Smoke: Yes Diet: regular caffeine: Yes during the past year weight has: remained stable Dental Care, Regularly: No Physical Activity Frequency: Does not Exercise Physical Activity Frequency Comment: Limited by physical condition Seatbelt Use: always Sunscreen Use: Yes Assistive Devices: Glasses Assistive Devices Comment: GLASSES FOR DRIVING AND READING Review of Systems All systems reviewed & are unremarkable except as noted in HPI & below. Physical Exam On physical examination of left knee, she has a slight varus deformity. She is range of motion 0 to 120 degrees. No instability. Pain over the distal medial femoral condyle.. Constitutional WD/WN, vitals as above Eyes PERRL, conjunctivae normal, anicteric sclerae ENMT external ear and nose normal, oropharynx normal Neck trachea midline, no thyromegaly Respiratory normal respiratory effort, lungs clear to auscultation Cardiovascular RRR, no murmur, no edema Gastrointestinal (Abdomen) normal bowel sounds, soft, nontender, no hepatosplenomegaly Skin no rashes, warm and dry Psychiatric A+Ox3, euthymic affect Results & Data Results & Data Laboratory Results . Diagnostic Findings X-rays of the left knee show advanced osteoarthritis with joint space narrowing, osteophyte formation, and xgyx-xu-kngx articulation. PG Care Time/CCT Total # of Minutes Spent Total Time Spent with Patient: Total time spent is greater than 50% in coordination of care (as documented) at patient's floor/unit and/or counseling patient: Coding Level of Care Code None Diagnoses Left knee DJD M17.12
[~2023-02-08 08:21] MED LIST changes: +ACETAMINOPHEN 500 MG TAB PO SCH; +BUPIVACAINE 0.25% PF 30 ML VIAL ONE; +FAMOTIDINE 20 MG TAB PO SCH; +GABAPENTIN 300 MG CAP PO SCH; -LR 15ML/HR IV SCH; +LR 500ML BOLUS, THEN 15ML/HR IV SCH; +ORTHO JOINT MIX INFIL SCH; +TRANEXAMIC ACID 1,000 MG **IV Intra-op IV SCH; +TRANEXAMIC ACID 1,000 MG **IV Pre-op IV SCH; -ceFAZolin 2000MG 2,000 MG/15 ML SYR IV SCH; +dexAMETHasone 4 MG TAB PO SCH
[2023-02-08] MEDS ORDERED: MIDAZOLAM HCL 1 MG/ML 2ML VIAL ONE (08:50)
[2023-02-08] MEDS ORDERED: ATROPINE SULFATE 0.1 MG/ML 10ML SYR IV PRN (09:43)
[2023-02-08] MEDS ORDERED: ePHEDrine sulfate 50 MG/ML AMP IV PRN (09:43)
[2023-02-08] MEDS ORDERED: ONDANSETRON INJ 2 MG/ML 2 ML VIAL IV PRN ×2 (09:43→13:57)
[2023-02-08] MEDS ORDERED: fentaNYL citrate PF 100 MCG/2 ML VIAL IV PRN (09:43)
[2023-02-08] MEDS ORDERED: Nursing to Pharmacy Communication SCH (10:00)
[2023-02-08] MEDS ORDERED: ORTHO JOINT ANESTHETIC ONE (10:15)
--- NOTE | 2023-02-08 10:51 | History & Physical Bridge Note ---
Date of Service February 08, 2023 History & Physical Bridge Note I have examined the patient, reviewed the History & Physical and in the interval since the performance of the History & Physical I have noted the following changes of clinical significance: no changes noted
[2023-02-08] MEDS ORDERED: KETAMINE 50 MG/5 ML SYRINGE ONE (11:09)
[2023-02-08] MEDS ORDERED: ONDANSETRON INJ 2 MG/ML 2 ML VIAL ONE (11:53)
[2023-02-08] MEDS ORDERED: PROPOFOL IV EMULSION 10 MG/ML 20 ML VIAL IV ONE (11:53)
--- NOTE | 2023-02-08 12:26 | Operative Report ---
PG Post Operative Report Pre & Post Diagnosis Operation Date: 02/08/23 10:30 Pre-Op Diagnosis: Left Knee Degenerative Joint Disease Post-Op Diagnosis: Left Knee Degenerative Joint Disease I identified the patient and participated in the time-out.: Yes Procedure Operation Date: 02/08/23 10:30 Actual Procedures p Left Total Knee Arthroplasty(Left) - Kev Courtney DO Surgeon Kev Courtney DO Police Chief Deputy Bobby Campos PA-C Estimated Blood Loss 30 Findings Consistent with Post-Op Diagnosis Specimens Left femoral tibial bone Description of Procedure Modifier 22: The patient's BMI is 52.0. This cause increased dissection and increased difficulty throughout the case. The case took about 50% longer than a standard knee replacement due to her morbid obesity. Implants used: I used a Patti Persona total knee arthroplasty system with a size 6 narrow PS femur, C tibia, 28 oval patella, and a size 10 CPS polyethylene bearing. All components were cemented in place with Biomet cement. Donna arrived [facility] for the above procedure. She was seen in the preoperative holding area and the operative extremity was identified and signed. She was given a preoperative antibiotic, TXA, a spinal anesthetic and an adductor nerve block. She was taken back to the operating room and laid on the table in supine position. She was given basic sedation. The operative knee was then prepped and draped in sterile fashion. A timeout was done, and the patient and the operative extremity was properly identified. A midline incision was made directly over the patella. Dissection was taken down to the extensor mechanism. A midvastus arthrotomy was used. The medial retinaculum was released and the fat pad was mostly excised. The knee was flexed and the ACL, PCL, and meniscus were removed. A drill was sent down the center of the femoral canal followed by an intramedullary delisa. Off that delisa a distal femoral cutting block was placed. 9 mm was resected off the distal femur at 5 of valgus. A posterior referencing AP sizing guide was then placed on the distal femur. The femur measured to be a size 6. 2 drill holes were placed in 3 of external rotation. A 4-in-1 cutting block was then impacted into place. Anterior, posterior, and chamfer cuts were then made. The proximal tibia was then exposed. An external tibial alignment guide was placed. A tibial cut guide was then anchored in place and the proximal tibia was then resected. The posterior aspect of the knee was then opened up and any additional meniscus fragments and osteophytes were removed. The tibia measured to be a size C. The tibial plate was then placed in the appropriate rotation and the tibia was drilled and punched. Trial components were then placed. I used a size 10 CPS polyethylene insert. The knee was brought through a full range of motion and felt to be stable. The peg holes for the femoral component were then drilled. The patella was then everted and 9 mm was resected off the posterior aspect of the patella. The patella measured to be a size 28 oval. 3 peg holes were then drilled. A trial patella was placed. The knee was once again brought through a full range of motion and felt to be stable. Trial components were then removed. The surrounding soft tissues were injected with 100 cc of an orthopedic pain control cocktail. All components were then cemented into place with Biomet cement. The final polyethylene insert was then snapped into place. Once cement was dry the tourniquet was deflated. Hemostasis was obtained. A dilute betadyne lavage was then done for 3 minutes. The joint was then irrigated with normal saline solution. The midvastus arthrotomy was then closed with #1 Vicryl suture. The skin was closed with 2-0 Vicryl, 3-0V lock suture, and grace. A soft compressive dressing was placed. She was then transferred to a hospital bed and taken to the postanesthesia care unit in stable condition. She tolerated the procedure well. Bobby Campos PA-C, was present for the entire procedure. He was critical for patient positioning, prepping, draping, retraction exposure, wound closure and application of sterile dressing. I attest to the content of the Intraoperative Record and any orders documented therein. Any exceptions are noted below.
--- NOTE | 2023-02-08 13:28 | XRay Report ---
LEFT KNEE 2 VIEWS History: Left total knee arthroplasty. Degenerative arthritis. Postop. FINDINGS: The patient is status post a left total knee arthroplasty. The hardware is intact. No fract ure or dislocation. Skin grace are in place. IMPRESSION: Left total knee arthroplasty. No evidence for hardware complication. ACT 112: Negative or not required by law. Electronically signed by: Valdemar Sahu M.D. 02/08/2023 1:27 PM
--- NOTE | 2023-02-08 13:33 | Anesthesiology Progress Note ---
Date of Service February 08, 2023 Anesthesia Post Procedure Vital Signs Vital Signs: Temp Pulse Resp BP Pulse Ox O2 Del Method O2 Flow Rate 02/08/23 13:30 75 16 146/79 H 94 Room Air 02/08/23 13:20 36.3 C L 75 18 142/80 H 95 Room Air 02/08/23 13:10 71 16 149/94 H 94 Room Air 02/08/23 13:00 70 20 135/87 100 Oxymask 6 02/08/23 12:50 36.4 C L 72 16 138/78 99 Oxymask 6 02/08/23 08:55 37.1 C 82 20 185/86 H 95 Room Air Pain Intensity Left Knee: Pain Intensity: 2 Transfer of Care Handoff Completed per policy Notes Mental Status: alert / awake / arousable and participated in evaluation Patient Amnestic to Procedure: Yes Nausea / Vomiting: adequately controlled Pain: adequately controlled Airway Patency, RR, SpO2: stable & adequate BP & HR: stable & adequate Hydration State: stable & adequate Neuraxial Anesthesia: was administered and sensory block is resolving Anesthetic Complications: no major complications apparent and Pt Satisfied with anesthetic care
[2023-02-08] MEDS ORDERED: NALOXONE HCL 0.4 MG/1 ML VIAL/CARP IV PRN (13:57)
[2023-02-08] MEDS ORDERED: PHARMACY GLYCEMIC MGMT CONSULT PRN (13:57)
[2023-02-08] MEDS ORDERED: FAMOTIDINE 40 MG TABLET PO PRN (13:57)
[2023-02-08] MEDS ORDERED: METOCLOPRAMIDE HCL INJ 5 MG/ML 2 ML VIAL IV PRN (13:57)
[2023-02-08] MEDS ORDERED: MAGNESIUM HYDROXIDE SUSP 30 ML UDC PO PRN (13:57)
[2023-02-08] MEDS ORDERED: bisacodyL 10 MG SUPP PR PRN (13:57)
[2023-02-08] MEDS ORDERED: ALBUTEROL HFA 8 GM INHALER INH PRN (13:57)
--- NOTE | 2023-02-08 14:08 | Pharmacy Report ---
Pharmacy Glycemic Short Note 2 - Date of Service February 08, 2023 - Glycemic Short BSG Results (Last 24 hours): 02/08/23 02/08/23 02/08/23 08:58 13:06 13:57 POC Glucose 124 H 128 H 124 H OUTPATIENT ANTIDIABETIC REGIMEN: * Metformin 500 mg PO BIDM HbA1c: 5.9% (01/02/23) ASSESSMENT: * RM is a 67 year old female POD 0 s/p left total knee arthroplasty * Received 8 mg PO dexamethasone and intra-articular ortho mix in OR * Dexamethasone 8 mg PO daily x 1 tomorrow AM * Preop BSG of 124 mg/dL and postop BSG of 128 mg/dL * Will hold basal insulin in light of current BSG and A1c on metformin only PLAN FOR INPATIENT GLYCEMIC CONTROL: * Hold outpatient oral diabetes medications * Basal insulin * hold * Bolus insulin * NovoLog per scale ACHS or Q6hrs while NPO * Goal Range: Low 110 mg/dL - High 140 mg/dL * Correction Factor: 25 mg/dL/unit * Nutritional / Prandial insulin per carb ratio of 1 unit per 8 grams CHO consumed
[2023-02-08] MEDS ORDERED: GLUCOSE 10 TAB/TUBE PO PRN (14:15)
[2023-02-08] MEDS ORDERED: GLUCAGON FOR INJ 1 MG VIAL IM PRN (14:15)
[2023-02-08] MEDS ORDERED: DEXTROSE 50% 50 ML SYRINGE IV PRN (14:15)
[2023-02-08] MEDS ORDERED: CARBOHYDRATES FOR HYPOGLYCEMIA PO PRN (14:15)
[2023-02-08] MEDS ORDERED: GLUCOSE 40% GEL 15 GM TUBE PO PRN (14:15)
[2023-02-08] MEDS: INSULIN ASPART PER UNIT CHARGE SC SCH ×3 (14:42→20:44)
[2023-02-08] MEDS: SODIUM CHLORIDE 0.9% 1000ML 1,000 ML IV SCH (14:43)
[2023-02-08] MEDS: KETOROLAC TROMETHAMINE 15 MG/ML VIAL IV SCH ×2 (15:21→20:48)
[2023-02-08] MEDS: oxyCODONE HCL IR 5 MG TAB (IMMEDIATE RELEASE) PO PRN (17:36)
[2023-02-08] MEDS: ceFAZolin 2000MG 2,000 MG/15 ML SYR IV SCH (20:41)
[2023-02-08] MEDS: ASPIRIN 81 MG ECTAB PO SCH (20:43)
[2023-02-08] MEDS: DOCUSATE SODIUM 100 MG CAP PO SCH (20:44)
[2023-02-08] MEDS ORDERED: SENNA 8.6 MG TAB PO SCH (21:00)
[2023-02-09] MEDS: SODIUM CHLORIDE 0.9% 1000ML 1,000 ML IV SCH (02:07)
[2023-02-09] MEDS: ceFAZolin 2000MG 2,000 MG/15 ML SYR IV SCH (02:57)
[2023-02-09] MEDS: KETOROLAC TROMETHAMINE 15 MG/ML VIAL IV SCH ×2 (02:58→09:31)
--- NOTE | 2023-02-09 07:59 | Orthopedic Progress Note ---
Date of Service February 09, 2023 Assessment & Plan (1) Status post left knee replacement: Overall she is doing very well. She is not having much pain in the left knee. She will be seen by physical therapy today for ambulation and range of motion exercises. She is on aspirin for DVT prophylaxis. She can be discharged home later today. She will follow-up with orthopedics in 2 weeks. Sara Thompson was seen and examined at bedside this morning. Overall she is doing very well. She is not having much pain in the left knee. She has been up and ambulating to the bathroom. She has no complaints.. Review of Systems All systems reviewed & are unremarkable except as noted in HPI & below. Physical Exam On physical examination of the left knee, the dressing is clean and dry. Her leg is out full extension. She has active dorsiflexion plantarflexion of her left ankle.. Results & Data Results & Data Laboratory Results . Diagnostic Findings Postoperative x-rays of the left knee show the prosthesis to be in anatomic alignment without any evidence of fracture complication, or loosening. PG Care Time/CCT Total # of Minutes Spent Total Time Spent with Patient: Total time spent is greater than 50% in coordination of care (as documented) at patient's floor/unit and/or counseling patient: Coding Level of Care Code 42547 Post Operative Follow-Up Diagnoses Status post left knee replacement Z96.652
[2023-02-09] MEDS ORDERED: dexAMETHasone 4 MG TAB PO SCH (08:00)
--- NOTE | 2023-02-09 08:00 | Discharge Summary ---
Date of Service February 09, 2023 Admission HPI (Per Admitting) Donna is a pleasant 67-year-old female, who has been dealing with chronic worsening osteoarthritis of both knees with the left worse than right. She recently had a reverse shoulder arthroplasty by Dr. Centeno and is doing well with that. She is really struggling with her right knee. She is having trouble with walking any long distances. She is having trouble going up and down stairs. After failing years of conservative treatment, she has elected proceed with a left knee replacement. Admission Exam (Per Admitting) On physical examination of left knee, she has a slight varus deformity. She is range of motion 0 to 120 degrees. No instability. Pain over the distal medial femoral condyle.. Principal Diagnosis Same as "Discharge Diagnosis" noted below under Discharge Instructions. Discharge Exam On physical examination of the left knee, the dressing is clean and dry. Her leg is out full extension. She has active dorsiflexion plantarflexion of her left ankle.. Discharge Data Procedures Performed Operation Date: 02/08/23 10:30 Actual Procedures p Left Total Knee Arthroplasty(Left) - Kev Courtney DO Ordered Studies 02/08/23 05:00 US - OR guided needle placemen Routine Hospital Course (1) Status post left knee replacement: On February 08, 2023 Donna arrived at [facility] and underwent a left knee replacement without complication. She had a spinal anesthetic. Postoperatively she was started on aspirin for DVT prophylaxis and transferred to the general orthopedic floors. Her hospital course was uneventful. On postop day #1, her vital signs were stable and her pain was well controlled. She was able to participate well with physical therapy doing ambulation and range of motion exercises. She was then discharged to home. She will follow-up with orthopedics in 2 weeks. PG Care Time/CCT Total # of Minutes Spent Total Time Spent with Patient: Total time spent is greater than 50% in coordination of care (as documented) at patient's floor/unit and/or counseling patient: Discharge Plan Discharge Items Patient Disposition: Home - Home Health Services Reason For Visit: DJD Left Knee Discharge Diagnosis: Left knee replacement Activity: Per Instructions section Non-emergency contact: Surgeon Call non-emergency contact if: your wound has increased redness and your wound has increased drainage Follow-up/Referrals: Sherly Ahmadi MD [Primary Care Provider] - Diet: Regular Addtl Attending Provider Instructions: Activity and Therapy Recommendations: * If you are using [facility] then therapy will be provided at your home until they feel you have accomplished all of your goals. * If you are using [facility] then Physical Therapy will be provided until they feel you are ready to start Outpatient Physical Therapy. * If you are not using home therapy then Outpatient Physical Therapy should start about 3-5 days from your day of surgery. Therapy will last about 6-10 weeks * It is important not to put a pillow under your knee when you are relaxing or sleeping. It is just as important to make sure you are getting your knee perfectly straight as it is to regain your knee bend. * You were shown a series of exercises in the hospital. Do these exercises three times each day including the exercises you were shown in physical therapy. * Get up and walk several times each day. For the first four weeks, try not to stand or walk for more than one hour at a time. If you do stand or walk for more than one hour, you will not hurt anything, but your leg will likely s well. * As you feel comfortable, you may change from the walker or crutches to a cane and then to independent walking. Medications: * Narcotic You will likely be sent home from the hospital with a prescription for the narcotic pain medication that worked best throughout your stay. * Aspirin Most patients will be required to take Aspirin 81mg twice a day for 6 weeks after surgery. This is obtained vvrx-suo-pffuyye and a prescription is not necessary. * Other medications may be prescribed for specific circumstances. If you have any questions, please call the office at . * Resume previous home medications unless otherwise instructed TEDs/Elastic Stockings: The white elastic stockings help limit swelling and prevent blood clots from forming in your legs.~ The more you wear them, the more they work. Wear them for six weeks. Dressing Care: The dressing can be changed after physical therapy on postop day #1. Daily dry dressing changes for a few days, especially if the incision is still draining some. If the incision is not draining then you may leave the grace open to air. If there is a little bit of drainage or if the grace are getting stuck on your clothing then cover the incision with a dry dressing. The grace will be removed at your 2 week follow-up appointment. Showering: You may shower 5 days from the day of surgery as long as the incision is no longer draining. You may shower with the grace exposed. Let soapy water run over the grace and pat them dry. Do not scrub or soak the incision. Things To Watch For: * Drainage from the incision site that occurs more than one week after your surgery. * Increased redness at the incision site. * Fever above 102 degrees Fahrenheit. * Unusual chest pain or shortness of breath. * Call [facility] at with any of the above problems Follow-Up Visit: Follow-up with Dr. Courtney's PA (Kev Fay) 2-3 weeks after your day of surgery. He will remove your grace and answer any questions. If you have any additional questions or concerns, Dr Courtney is usually in the office at the same time and will be available An appointment was probably scheduled when you signed-up for surgery in the office. If you have any questions call Office Instructions: More detailed instructions as well as Frequently Asked Questions were provided in a folder by our office when you signed-up for surgery. Please review these instructions when you get home. If you have any further questions or concerns, please feel free to call the office at [phone] Pending Studies at Discharge: No Stand-Alone Forms: My [facility] [employer], Smoking Cessation Medications and DC Order Prescriptions: New aspirin 81 mg Tablet,Delayed Release (Dr/Ec) 81 mg PO BID 42 Days Qty: 84 0RF oxycodone-acetaminophen 5-325 mg tablet 1 tab PO Q6H PRN (Reason: pain) Qty: 30 0RF Continued metformin 500 mg tablet 500 mg PO BID Qty: 60 5RF cholecalciferol (vitamin D3) 50 mcg (2,000 unit) capsule 50 mcg PO QAM hiaqrrcpwfua-iklaehan-ricdtt tablet 1 tab PO QAM albuterol sulfate [Ventolin HFA] 90 mcg/actuation HFA aerosol inhaler 2 puff INH Q6H PRN (Reason: shortness of breath) Qty: 18 5RF Patient Comments: Patient has inhaler, has not used in a year. famotidine 40 mg tablet 40 mg PO DAILY PRN (Reason: gerd) Discontinued aspirin 81 mg Tablet,Delayed Release (Dr/Ec) 81 mg PO DAILY PRN (Reason: Pain) Admission Data Admit Date/Time: 02/08/23 12:52 Attending Provider: Kev Courtney Admit Provider: Kev Courtney Primary Care Provider: Sherly Ahmadi Other Providers: [facility],Home [facility]
[2023-02-09] MEDS ORDERED: MULTIVITAMIN MINERALS LUTEIN PO SCH (09:00)
[2023-02-09] MEDS ORDERED: MULTIVITAMIN TAB PO SCH (09:00)
[2023-02-09] MEDS ORDERED: CHOLECALCIFEROL 1,000 UNITS 25 MCG TAB PO SCH (09:00)
[2023-02-09] MEDS: INSULIN ASPART PER UNIT CHARGE SC SCH ×2 (09:06→12:54)
[2023-02-09] MEDS: ASPIRIN 81 MG ECTAB PO SCH (09:32)
[2023-02-09] MEDS: DOCUSATE SODIUM 100 MG CAP PO SCH (09:33)
[2023-02-09] MEDS: oxyCODONE HCL IR 5 MG TAB (IMMEDIATE RELEASE) PO PRN (12:54)
== END 2023-02-09 13:05 | disposition home health service (06) ==
LOC: 3E 08:21 → ASU 08:21

== ENCOUNTER 2023-05-10 05:15 | Observation (INO) ==
--- NOTE | 2023-04-30 14:03 | Anesthesiology Consultation ---
Date of Service April 30, 2023 Assessment & Plan (1) Encounter for pre-operative examination: Chart Review Chart Review: Acceptable Risk for Surgery (pending urine culture results and anesthesia evaluation DOS ) and Patient NOT seen in Pre Admission Testing - Awaiting repeat urine culture results ([place] PCP ordered culture per 05/01/23 workload notes) - Pt is NOT an OPJ candidate - Check BSG AM DOS -COVID screening: Per PAT nursing assessment on 04/30/23. No known COVID-19 positive contacts or current COVID-19 related symptoms. Travel screen negative. At surgeon discretion if preop Covid testing being done. Patient last seen by PCP 04/23/23= presents for recheck of HTN. Has tried BP medications but gets dizziness. Has been checking BP at home - getting variation of BPs. Does not want to start any BP meds before her planned joint procedure. HTN- uncontrolled. BP aimed to be below 140/90. Declines antihypertensives at this time- patient aware that if BP is not well controlled, her surgery may need postponed. Pt understands risks of uncontrolled HTN. Recheck in three months. BP 148/110 (Discussed with Dr De Leon on 05/01/23- patient declining BP meds- PCP did warn patient she could be cancelled DOS if BP too high- pt can proceed as scheduled and BP will be evaluated DOS) Left TKA 02/08/23= Done under SAB at L4-5 with 1 attempt History Surgery Operation Date: 05/10/23 11:40 Proposed Procedures p Right Total Knee Arthroplasty - Kev Courtney, Height/Weight Height: 5 ft Weight: 115.666 kg Allergies Allergy/AdvReac Type Severity Reaction Status Date / Time Penicillins Allergy Intermediate Hives Verified 04/30/23 13:26 lisinopril AdvReac Intermediate Dizziness Verified 04/30/23 13:26 ibuprofen AdvReac Mild headaches Verified 04/30/23 13:26 with large amounts Medications Home Medications Medication Instructions Recorded Confirmed Last Taken atcthqotqvby-eyfxlmbm-elasol 1 tab PO QAM 03/03/19 04/30/23 2 Days Ago tablet (Multivitamin 50 Plus ~02/06/23 tablet) cholecalciferol (vitamin D3) 50 50 mcg PO QAM 07/07/21 04/30/23 1 Week Ago mcg (2,000 unit) capsule ~02/01/23 famotidine 40 mg tablet 40 mg PO DAILY PRN gerd 09/14/22 04/30/23 02/07/23 12:00 albuterol sulfate 90 mcg/actuation 2 puff inhalation Q6H PRN 11/23/22 04/30/23 Unknown aerosol inhaler (Ventolin HFA) shortness of breath #18 grams atorvastatin 10 mg tablet (Lipitor) 10 mg PO QPM 02/13/23 04/30/23 Unknown metformin 500 mg tablet See Rx Instructions .Route 04/01/23 04/30/23 Unknown .COMPLEX #60 tabs Past Medical History Medical History Asthma rare use of PRN inh-last use > 2 yrs Chronic back pain CKD (chronic kidney disease) under observation with nephro DM type 2 (diabetes mellitus, type 2) NIDDM GERD (gastroesophageal reflux disease) controlled, stable per pt History of blood transfusion s/p kidney stone surgery (years ago) History of kidney stones No recent issues History of uterine cancer s/p hysterectomy- no chemo or XRT HLD (hyperlipidemia) HTN (hypertension) controlled, stable per pt Morbid obesity with BMI of 50.0-59.9, adult Past Family History Family History Mother Alcohol abuse Father FH: kidney cancer Brother FH: kidney cancer Drug abuse Alcohol abuse Grandmother Cancer Uterine Uterine cancer Grandfather Diabetes Heart disease Sister PONV (postoperative nausea and vomiting) Slow to wake up after anesthesia Daughter PONV (postoperative nausea and vomiting) Denies family history of Ovarian cancer Prostate cancer Myocardial infarction Breast cancer Colorectal cancer Past Surgical History Surgical History (Updated 04/30/23 @ 13:53 by Heather Obregon PA-C) H/O shoulder surgery Right Reverse Total Shoulder Arthroplasty History of ankle surgery Rt - cyst removal History of carpal tunnel release of both wrists History of cystoscopy History of lithotripsy History of open reduction and internal fixation (ORIF) procedure Rt wrist History of reverse total replacement of right shoulder joint History of total abdominal hysterectomy and bilateral salpingo-oophorectomy History of total left knee replacement Left TKA 02/08/23= Done under SAB at L4-5 with 1 attempt Hx of nephrolithotomy with removal of calculi PONV (postoperative nausea and vomiting) Slow to wake up after anesthesia Status post breast reduction Social History Smoking Status: Never smoker Do You Dip or Chew Tobacco: No Hx Alcohol Use: Yes Alcohol type: wine alcohol intake frequency: a few times a month Hx Substance Use: No substance use type: does not use Lab Results Anesthesia Preop Results Results Anesthesia Widget: WBC 6.34 K/ul (4.8-10.8) 04/09/23 Hgb 12.8 g/dl (12.0-16.0) 04/09/23 Hct 40.9 % (37.0-47.0) 04/09/23 Plt 249 K/uL (130-400) 04/09/23 Na 142 mmol/L (136-145) 04/09/23 K 4.2 mmol/L (3.5-5.1) 04/09/23 Cl 108 mmol/L (98-107) H 04/09/23 CO2 26 mmol/L (21-32) 04/09/23 BUN 17 mg/dl (6-23) 04/09/23 Creat 1.30 mg/dl (0.6-1.2) H 04/09/23 Glucose Level 99 mg/dl (70-99(Fasting)) 04/09/23 PT 10.9 Seconds (9.0-12.0) 04/09/23 PTT 26.2 Seconds (21.0-31.0) 04/09/23 INR 1.0 (0.9-1.1) 04/09/23 Blood Type O Positive 04/09/23 Antibody Screen NEGATIVE 04/09/23 Testing Laboratory Results Elevated creatinine - chronic and stable 04/23/23= UA: Small urine blood, small urine leukocyte esterase, >30 urine WBC, 10-30 urine RBC, >30 epithel cells, 2+ bacteria, calcium oxalate crystals present URINE CULTURE: E coli, >100,000 CFU/ml (Treated by PCP per PAT nursing assessment) Electrocardiogram Date: 09/17/22 NSR, rate 70 bpm Nonspecific T wave abnormality Chest X-Ray Date: 09/17/22 The lungs are clear. Cardiac silhouette is normal in size. No pleural effusions. No pneumothorax. IMPRESSION: No acute process.
--- NOTE | 2023-05-09 07:38 | History & Physical Report ---
Date of Service May 09, 2023 Assessment & Plan (1) Right knee DJD: We will proceed with a right total knee arthroplasty. Postoperatively she will be started on aspirin for DVT prophylaxis and kept overnight in the hospital for postop medical management. She plans to go to outpatient physical therapy upon discharge. History of Present Illness Chief Complaint: Osteoarthritis of the right knee. Primary Care Provider: Sherly Ahmadi MD Donna is a pleasant 67-year-old female who is been doing with chronic increasing right knee pain. X-rays and clinical examination have been diagnostic for advanced osteoarthritis of the right knee. After failing conservative treatment, she is elected proceed with a right total knee arthroplasty. I did a left knee replacement on her 3 months ago and she is done very well with that.. Allergies Allergy/AdvReac Type Severity Reaction Status Date / Time Penicillins Allergy Intermediate Hives Verified 04/30/23 13:26 lisinopril AdvReac Intermediate Dizziness Verified 04/30/23 13:26 ibuprofen AdvReac Mild headaches Verified 04/30/23 13:26 with large amounts Home Medications Medication Instructions Recorded Confirmed Type [id number] 1 tab PO QAM 03/03/19 04/30/23 History tablet (Multivitamin 50 Plus tablet) cholecalciferol (vitamin D3) 50 50 mcg PO QAM 07/07/21 04/30/23 History mcg (2,000 unit) capsule famotidine 40 mg tablet 40 mg PO DAILY PRN gerd 09/14/22 04/30/23 History albuterol sulfate 90 mcg/actuation 2 puff inhalation Q6H PRN 11/23/22 04/30/23 Rx aerosol inhaler (Ventolin HFA) shortness of breath #18 grams atorvastatin 10 mg tablet (Lipitor) 10 mg PO QPM 02/13/23 04/30/23 History metformin 500 mg tablet See Rx Instructions .Route 05/03/23 Rx .COMPLEX #60 tabs Past Med/Surg History Medical History Asthma rare use of PRN inh-last use > 2 yrs Chronic back pain CKD (chronic kidney disease) under observation with nephro DM type 2 (diabetes mellitus, type 2) NIDDM GERD (gastroesophageal reflux disease) controlled, stable per pt History of blood transfusion s/p kidney stone surgery (years ago) History of kidney stones No recent issues History of uterine cancer s/p hysterectomy- no chemo or XRT HLD (hyperlipidemia) HTN (hypertension) controlled, stable per pt Morbid obesity with BMI of 50.0-59.9, adult Surgical History H/O shoulder surgery Right Reverse Total Shoulder Arthroplasty History of ankle surgery Rt - cyst removal History of carpal tunnel release of both wrists History of cystoscopy History of lithotripsy History of open reduction and internal fixation (ORIF) procedure Rt wrist History of reverse total replacement of right shoulder joint History of total abdominal hysterectomy and bilateral salpingo-oophorectomy History of total left knee replacement Left TKA 02/08/23= Done under SAB at L4-5 with 1 attempt Hx of nephrolithotomy with removal of calculi PONV (postoperative nausea and vomiting) Slow to wake up after anesthesia Status post breast reduction Family History Mother Alcohol abuse Father FH: kidney cancer Brother FH: kidney cancer Drug abuse Alcohol abuse Grandmother Cancer Uterine Uterine cancer Grandfather Diabetes Heart disease Sister PONV (postoperative nausea and vomiting) Slow to wake up after anesthesia Daughter PONV (postoperative nausea and vomiting) Denies family history of Ovarian cancer Prostate cancer Myocardial infarction Breast cancer Colorectal cancer Social History Smoking Status: Never smoker Second Hand Exposure: Yes (as a child); Do You Dip or Chew Tobacco: No; Hx Alcohol Use: Yes Alcohol type: wine Alcohol Intake Frequency: Monthly or Less Hx Substance Use: No Preferred Language: Syriac Communication Ability: Effective Visual Impairment: No Limitations Hearing Ability: Normal Activities Concierge Required: No Beliefs That Will Affect Care: None marital status: Current Living Situation: Spouse current occupational status: retired current occupation: Homemaker How many Children do You have: 2 Feels Safe at Home: Yes Childhood Exposure to Second-Hand Smoke: Yes Diet: regular caffeine: Yes during the past year weight has: remained stable Dental Care, Regularly: No Physical Activity Frequency: Does not Exercise Physical Activity Frequency Comment: Limited by physical condition Seatbelt Use: always Sunscreen Use: Yes Assistive Devices: Glasses Review of Systems All systems reviewed & are unremarkable except as noted in HPI & below. Physical Exam On physical examination of the right knee, she has a slight varus deformity. She has tenderness palpation of the distal femoral condyles and over the medial joint line.. Constitutional WD/WN, vitals as above Eyes PERRL, conjunctivae normal, anicteric sclerae ENMT external ear and nose normal, oropharynx normal Neck trachea midline, no thyromegaly Respiratory normal respiratory effort, lungs clear to auscultation Cardiovascular RRR, no murmur, no edema Gastrointestinal (Abdomen) normal bowel sounds, soft, nontender, no hepatosplenomegaly Skin no rashes, warm and dry Psychiatric A+Ox3, euthymic affect Results & Data Results & Data Laboratory Results . Diagnostic Findings X-rays of the right knee show advanced osteoarthritis with joint space narrowing, osteophyte formation, and [id number] articulation.. PG Care Time/CCT Total # of Minutes Spent Total Time Spent with Patient: Total time spent is greater than 50% in coordination of care (as documented) at patient's floor/unit and/or counseling patient: Coding Level of Care Code None Diagnoses Right knee DJD M17.11
[2023-05-10] MEDS ORDERED: ceFAZolin 2000MG 2,000 MG/15 ML SYR IV SCH (06:00)
[2023-05-10] MEDS ORDERED: dexAMETHasone 4 MG TAB PO SCH (06:00)
[2023-05-10] MEDS ORDERED: ORTHO JOINT MIX INFIL SCH (06:00)
[2023-05-10] MEDS ORDERED: ACETAMINOPHEN 500 MG TAB PO SCH (06:00)
[2023-05-10] MEDS ORDERED: LR 500ML BOLUS, THEN 15ML/HR IV SCH (06:00)
[2023-05-10] MEDS ORDERED: TRANEXAMIC ACID 1,000 MG **IV Intra-op IV SCH (06:00)
[2023-05-10] MEDS ORDERED: TRANEXAMIC ACID 1,000 MG **IV Pre-op IV SCH (06:00)
[2023-05-10] MEDS ORDERED: LR 60ML/HR IV SCH (06:00)
[2023-05-10] MEDS ORDERED: GABAPENTIN 300 MG CAP PO SCH (06:00)
[2023-05-10] MEDS ORDERED: FAMOTIDINE 20 MG TAB PO SCH (06:00)
--- NOTE | 2023-05-10 06:17 | History & Physical Bridge Note ---
Date of Service May 10, 2023 History & Physical Bridge Note I have examined the patient, reviewed the History & Physical and in the interval since the performance of the History & Physical I have noted the following changes of clinical significance: no changes noted
[2023-05-10] MEDS ORDERED: ROPIVACAINE 0.5% 5 MG/ML 30 ML VIAL ONE (06:24)
[2023-05-10] MEDS ORDERED: ORTHO JOINT ANESTHETIC ONE (06:34)
[2023-05-10] MEDS ORDERED: MIDAZOLAM HCL 1 MG/ML 2ML VIAL ONE (06:41)
[2023-05-10] MEDS ORDERED: LIDOCAINE 2% 2 ML VIAL/AMP(20MG/ML) INFIL ONE (06:41)
[2023-05-10] MEDS ORDERED: PROPOFOL IV EMULSION 10 MG/ML 20 ML VIAL IV ONE ×4 (06:41→06:43)
[2023-05-10] MEDS ORDERED: ONDANSETRON INJ 2 MG/ML 2 ML VIAL ONE (06:41)
[2023-05-10] MEDS ORDERED: HYDROmorphone INJ 2 MG/ML SYR/VIAL IV PRN (06:42)
[2023-05-10] MEDS ORDERED: fentaNYL citrate PF 100 MCG/2 ML VIAL IV PRN (06:42)
[2023-05-10] MEDS ORDERED: ePHEDrine sulfate 50 MG/ML AMP IV PRN (06:42)
[2023-05-10] MEDS ORDERED: ONDANSETRON INJ 2 MG/ML 2 ML VIAL IV PRN ×2 (06:42→09:48)
[2023-05-10] MEDS ORDERED: ATROPINE SULFATE 0.1 MG/ML 10ML SYR IV PRN (06:42)
[2023-05-10] MEDS ORDERED: ceFAZolin 330 MG/ML 1 GM VIAL ONE (07:06)
--- NOTE | 2023-05-10 08:00 | Operative Report ---
PG Post Operative Report Pre & Post Diagnosis Operation Date: 05/10/23 07:00 Pre-Op Diagnosis: Right Knee Degenerative Joint Disease Post-Op Diagnosis: Right Knee Degenerative Joint Disease I identified the patient and participated in the time-out.: Yes Procedure Operation Date: 05/10/23 07:00 Actual Procedures p Right Total Knee Arthroplasty(Right) - Kev Courtney DO Surgeon Kev Courtney DO [employer] Kev Fay PA-C Estimated Blood Loss 30 Findings Consistent with Post-Op Diagnosis Specimens Right femoral tibial bone Description of Procedure Implants used: I used a Patti Persona total knee arthroplasty system with a size 5 PS femur, C tibia, 28 oval patella, and a size 12 CPS polyethylene bearing. All components were cemented in place with Biomet cement. Donna arrived [facility] for the above procedure. She was seen in the preoperative holding area and the operative extremity was identified and signed. She was given a preoperative antibiotic, TXA, a spinal anesthetic and an adductor nerve block. She was taken back to the operating room and laid on the table in supine position. She was given basic sedation. The operative knee was then prepped and draped in sterile fashion. A timeout was done, and the patient and the operative extremity was properly identified. A midline incision was made directly over the patella. Dissection was taken down to the extensor mechanism. A midvastus arthrotomy was used. The medial retinaculum was released and the fat pad was mostly excised. The knee was flexed and the ACL, PCL, and meniscus were removed. A drill was sent down the center of the femoral canal followed by an intramedullary delisa. Off that delisa a distal femoral cutting block was placed. 9 mm was resected off the distal femur at 5 of valgus. A posterior referencing AP sizing guide was then placed on the distal femur. The femur measured to be a size 5. 2 drill holes were placed in 3 of external rotation. A 4-in-1 cutting block was then impacted into place. Anterior, posterior, and chamfer cuts were then made. The proximal tibia was then exposed. An external tibial alignment guide was placed. A tibial cut guide was then anchored in place and the proximal tibia was then resected. The posterior aspect of the knee was then opened up and any additional meniscus fragments and osteophytes were removed. The tibia measured to be a size C. The tibial plate was then placed in the appropriate rotation and the tibia was drilled and punched. Trial components were then placed. I used a size 12 CPS polyethylene insert. The knee was brought through a full range of motion and felt to be stable. The peg holes for the femoral component were then drilled. The patella was then everted and 9 mm was resected off the posterior aspect of the patella. The patella measured to be a size 28 oval. 3 peg holes were then drilled. A trial patella was placed. The knee was once again brought through a full range of motion and felt to be stable. Trial components were then removed. The surrounding soft tissues were injected with 100 cc of an orthopedic pain control cocktail. All components were then cemented into place with Biomet cement. The final polyethylene insert was then snapped into place. Once cement was dry the tourniquet was deflated. Hemostasis was obtained. A Surgiphor spray was used throughout the case.. The joint was then irrigated with normal saline solution. The midvastus arthrotomy was then closed with #1 Vicryl suture. The skin was closed with 2-0 Vicryl, 3- 0V lock suture, and grace. A soft compressive dressing was placed. She was then transferred to a hospital bed and taken to the postanesthesia care unit in stable condition. She tolerated the procedure well. Kev Fay PA-C, was present for the entire procedure. He was critical for patient positioning, prepping, draping, retraction exposure, wound closure and application of sterile dressing. I attest to the content of the Intraoperative Record and any orders documented therein. Any exceptions are noted below.
[2023-05-10] MEDS ORDERED: PHARMACY GLYCEMIC MGMT CONSULT PRN (08:24)
--- NOTE | 2023-05-10 08:45 | XRay Report ---
TWO VIEWS RIGHT KNEE CLINICAL HISTORY: Postoperative examination. FINDINGS: AP and crosstable lateral portable views of the right knee are obtained. A right knee arthr oplasty is in near anatomic alignment. There has been undersurface remodeling of the patella. No acut e fracture is seen. There are expected postoperative changes around the knee including skin clips, so ft tissue edema, and subcutaneous gas. IMPRESSION: Expected postoperative changes status post right knee arthroplasty. No acute fracture is seen. ACT 112: Negative or not required by law. Electronically signed by: Bassem Mooney M.D. 05/10/2023 8:44 AM
--- NOTE | 2023-05-10 08:57 | Anesthesiology Progress Note ---
Date of Service May 10, 2023 Anesthesia Post Procedure Vital Signs Vital Signs: Temp Pulse Pulse Resp BP Pulse Ox O2 Del Method 05/10/23 08:50 36.2 C L 72 14 138/81 93 Room Air 05/10/23 08:40 77 13 153/82 H 94 Room Air 05/10/23 08:30 73 14 134/77 97 Oxymask 05/10/23 08:22 36.1 C L 84 12 133/66 97 Oxymask 05/10/23 05:47 36.5 C 90 20 177/97 H 96 Room Air O2 Flow Rate 05/10/23 08:50 05/10/23 08:40 05/10/23 08:30 2 05/10/23 08:22 7 05/10/23 05:47 Pain Intensity Right Knee: Pain Intensity: 3 Transfer of Care Handoff Completed per policy Notes Mental Status: alert / awake / arousable and participated in evaluation Patient Amnestic to Procedure: Yes Nausea / Vomiting: adequately controlled Pain: adequately controlled Airway Patency, RR, SpO2: stable & adequate BP & HR: stable & adequate Hydration State: stable & adequate Anesthetic Complications: no major complications apparent and Pt Satisfied with anesthetic care
[2023-05-10] MEDS ORDERED: HYDROmorphone INJ 0.5 MG/0.5 ML SYR IV PRN (09:48)
[2023-05-10] MEDS ORDERED: bisacodyL 10 MG SUPP PR PRN (09:48)
[2023-05-10] MEDS ORDERED: SODIUM CHLORIDE 0.9% 1000ML 1,000 ML IV SCH (09:48)
[2023-05-10] MEDS ORDERED: METOCLOPRAMIDE HCL INJ 5 MG/ML 2 ML VIAL IV PRN (09:48)
[2023-05-10] MEDS ORDERED: ALBUTEROL HFA 8 GM INHALER INH PRN (09:48)
[2023-05-10] MEDS ORDERED: MAGNESIUM HYDROXIDE SUSP 30 ML UDC PO PRN (09:48)
[2023-05-10] MEDS ORDERED: NALOXONE HCL 0.4 MG/1 ML VIAL/CARP IV PRN (09:48)
[2023-05-10] MEDS: DOCUSATE SODIUM 100 MG CAP PO SCH ×2 (11:08→20:48)
[2023-05-10] MEDS: KETOROLAC TROMETHAMINE 15 MG/ML VIAL IV SCH ×3 (11:08→23:06)
[2023-05-10] MEDS ORDERED: GLUCOSE 40% GEL 15 GM TUBE PO PRN (11:30)
[2023-05-10] MEDS ORDERED: DEXTROSE 50% 50 ML SYRINGE IV PRN (11:30)
[2023-05-10] MEDS ORDERED: CARBOHYDRATES FOR HYPOGLYCEMIA PO PRN (11:30)
[2023-05-10] MEDS ORDERED: GLUCOSE 10 TAB/TUBE PO PRN (11:30)
[2023-05-10] MEDS ORDERED: GLUCAGON FOR INJ 1 MG VIAL IM PRN (11:30)
[2023-05-10] MEDS: MULTIVITAMIN TAB PO SCH (11:38)
[2023-05-10] MEDS: ASPIRIN 81 MG ECTAB PO SCH ×2 (11:38→20:47)
[2023-05-10] MEDS: INSULIN ASPART PER UNIT CHARGE SC SCH ×3 (12:01→20:40)
[2023-05-10] MEDS: ACETAMINOPHEN 500 MG TAB PO SCH ×2 (12:51→20:48)
[2023-05-10] MEDS: oxyCODONE HCL IR 5 MG TAB (IMMEDIATE RELEASE) PO PRN ×3 (12:51→18:48)
--- NOTE | 2023-05-10 14:25 | Pharmacy Report ---
Pharmacy Glycemic Short Note 2 - Date of Service May 10, 2023 - Glycemic Short BSG Results (Last 24 hours): 05/10/23 05/10/23 05/10/23 05:46 08:25 11:38 POC Glucose 109 H 127 H 220 H OUTPATIENT ANTIDIABETIC REGIMEN: * metformin 500 mg PO BID * HbA1C = 5.9% (01/02/23) ASSESSMENT: * Ms Rodriguez is a 67 y/o F with a PMH of pre-diabetes. * Preop BSG was 109 mg/dL. Postop BSG was 127 mg/dL. * Patient received dexamethasone 8 mg PO preop. * Patient ate a late breakfast which was not covered. Lunch BSG was 220 mg/dL. * Will provide Novolog weight-based stress of 2. Did not opt for NPH since fasting BSG < 110 mg/dL. PLAN FOR INPATIENT GLYCEMIC CONTROL: * Hold outpatient oral diabetes medications * Basal insulin * hold * Bolus insulin * NovoLog per scale ACHS or Q6hrs while NPO * Goal Range: Low 110 mg/dL - High 140 mg/dL * Correction Factor: 20 mg/dL/unit * Nutritional / Prandial insulin per carb ratio of 1 unit per 7 grams CHO consumed
[2023-05-10] MEDS: ceFAZolin 2000MG 2,000 MG/15 ML SYR IV SCH ×2 (14:51→23:06)
[2023-05-10] MEDS ORDERED: ATORVASTATIN 10 MG TAB PO SCH (21:00)
[2023-05-10] MEDS ORDERED: SENNA 8.6 MG TAB PO SCH (21:00)
[2023-05-11] MEDS: ACETAMINOPHEN 500 MG TAB PO SCH (05:22)
[2023-05-11] MEDS: KETOROLAC TROMETHAMINE 15 MG/ML VIAL IV SCH ×2 (05:22→11:53)
--- NOTE | 2023-05-11 08:23 | Orthopedic Progress Note ---
Date of Service May 11, 2023 Assessment & Plan (1) Status post right knee replacement: Overall she is doing very well. She is not having much pain in the right knee. She will be seen by physical therapy today for ambulation and range of motion exercises. She is on aspirin for DVT prophylaxis. The nursing staff can change her dressing after physical therapy. She can be discharged home later today. She will follow-up orthopedics in 2 weeks. Sara Thompson was seen and examined at bedside this morning. Overall she is doing very well. She is not having much pain in the right knee. She has been up and ambulating to the bathroom. She has no complaints.. Review of Systems All systems reviewed & are unremarkable except as noted in HPI & below. Physical Exam On physical examination the right knee, the dressing is clean and dry. Her leg is out full extension. She has active dorsiflexion plantarflexion of her right ankle.. Results & Data Results & Data Laboratory Results . Diagnostic Findings Postoperative x-rays of the right knee show the prosthesis to be in anatomic alignment without any evidence of fracture, desiccation, or loosening.. PG Care Time/CCT Total # of Minutes Spent Total Time Spent with Patient: Total time spent is greater than 50% in coordination of care (as documented) at patient's floor/unit and/or counseling patient: Coding Level of Care Code 76885 Post Operative Follow-Up Diagnoses Status post right knee replacement Z96.651
[2023-05-11] MEDS: DOCUSATE SODIUM 100 MG CAP PO SCH (08:26)
[2023-05-11] MEDS: ASPIRIN 81 MG ECTAB PO SCH (08:26)
--- NOTE | 2023-05-11 08:26 | Discharge Summary ---
Date of Service May 11, 2023 Admission HPI (Per Admitting) Donna is a pleasant 67-year-old female who is been doing with chronic increasing right knee pain. X-rays and clinical examination have been diagnostic for advanced osteoarthritis of the right knee. After failing conservative treatment, she is elected proceed with a right total knee arthroplasty. I did a left knee replacement on her 3 months ago and she is done very well with that.. Admission Exam (Per Admitting) On physical examination of the right knee, she has a slight varus deformity. She has tenderness palpation of the distal femoral condyles and over the medial joint line.. Principal Diagnosis Same as "Discharge Diagnosis" noted below under Discharge Instructions. Discharge Exam On physical examination the right knee, the dressing is clean and dry. Her leg is out full extension. She has active dorsiflexion plantarflexion of her right ankle.. Discharge Data Procedures Performed Operation Date: 05/10/23 07:00 Actual Procedures p Right Total Knee Arthroplasty(Right) - Kev Courtney DO Ordered Studies 05/10/23 05:00 US - OR guided needle placemen Routine Hospital Course (1) Status post right knee replacement: On May 10, 2023 Donna arrived at [facility] and underwent a right knee replacement without complication. She had a spinal anesthetic. Postoperatively she was started on aspirin for DVT prophylaxis and transferred to the general orthopedic floors. Her hospital course was uneventful. On postop day 1, her vital signs were stable and her pain was well controlled. She was able to participate well with physical therapy doing ambulation and range of motion exercises. She was then discharged home. She will follow-up with orthopedics in 2 weeks. PG Care Time/CCT Total # of Minutes Spent Total Time Spent with Patient: Total time spent is greater than 50% in coordination of care (as documented) at patient's floor/unit and/or counseling patient: Discharge Plan Discharge Items Patient Disposition: Home - Home Health Services Reason For Visit: DJD Right Knee Discharge Diagnosis: Right knee replacement Activity: As commented below Non-emergency contact: Surgeon Call non-emergency contact if: your wound has increased redness and your wound has increased drainage Follow-up/Referrals: Sherly Ahmadi MD [Primary Care Provider] - Diet: Regular Addtl Attending Provider Instructions: Activity and Therapy Recommendations: * If you are using [facility] then therapy will be provided at your home until they feel you have accomplished all of your goals. * If you are using [facility] then Physical Therapy will be provided until they feel you are ready to start Outpatient Physical Therapy. * If you are not using home therapy then Outpatient Physical Therapy should start about 3-5 days from your day of surgery. Therapy will last about 6-10 weeks * It is important not to put a pillow under your knee when you are relaxing or sleeping. It is just as important to make sure you are getting your knee perfectly straight as it is to regain your knee bend. * You were shown a series of exercises in the hospital. Do these exercises three times each day including the exercises you were shown in physical therapy. * Get up and walk several times each day. For the first four weeks, try not to stand or walk for more than one hour at a time. If you do stand or walk for more than one hour, you will not hurt anything, but your leg will likely swell. * As you feel comfortable, you may change from the walker or crutches to a cane and then to independent walking. Medications: * Narcotic You will likely be sent home from the hospital with a prescription for the narcotic pain medication that worked best throughout your stay. * Aspirin Most patients will be required to take Aspirin 81mg twice a day for 6 weeks after surgery. This is obtained [id number] and a prescription is not necessary. * Other medications may be prescribed for specific circumstances. If you have any questions, please call the office at . * Resume previous home medications unless otherwise instructed TEDs/Elastic Stockings: The white elastic stockings help limit swelling and prevent blood clots from forming in your legs.~ The more you wear them, the more they work. Wear them for six weeks. Dressing Care: The dressing can be changed after physical therapy on postop day #1. Daily dry dressing changes for a few days, especially if the incision is still draining some. If the incision is not draining then you may leave the grace open to air. If there is a little bit of drainage or if the grace are getting stuck on your clothing then cover the incision with a dry dressing. The grace will be removed at your 2 week follow-up appointment. Showering: You may shower 5 days from the day of surgery as long as the incision is no longer draining. You may shower with the grace exposed. Let soapy water run over the grace and pat them dry. Do not scrub or soak the incision. Things To Watch For: * Drainage from the incision site that occurs more than one week after your surgery. * Increased redness at the incision site. * Fever above 102 degrees Fahrenheit. * Unusual chest pain or shortness of breath. * Call [facility] at with any of the above problems Follow-Up Visit: Follow-up with Dr. Courtney's PA (Kev Fay) 2-3 weeks after your day of surgery. He will remove your grace and answer any questions. If you have any additional questions or concerns, Dr Courtney is usually in the office at the same time and will be available An appointment was probably scheduled when you signed-up for surgery in the office. If you have any questions call Office Instructions: More detailed instructions as well as Frequently Asked Questions were provided in a folder by our office when you signed-up for surgery. Please review these instructions when you get home. If you have any further questions or concerns, please feel free to call the office at [phone] Pending Studies at Discharge: No Stand-Alone Forms: [facility] [place], Smoking Cessation Medications and DC Order Prescriptions: New oxycodone 5 mg Tablet 5 mg PO Q4H PRN (Reason: pain) Qty: 30 0RF aspirin 81 mg Tablet,Delayed Release (Dr/Ec) 81 mg PO BID 42 Days Qty: 0 0RF Continued atorvastatin [Lipitor] 10 mg tablet 10 mg PO QPM metformin 500 mg tablet See Rx Instructions .ROUTE .COMPLEX Qty: 60 5RF Dose Instruction: TAKE ONE TABLET BY MOUTH TWO TIMES A DAY Rx Instructions: TAKE ONE TABLET BY MOUTH TWO TIMES A DAY cholecalciferol (vitamin D3) 50 mcg (2,000 unit) capsule 50 mcg PO QAM Multivitamin 50 Plus tablet 1 tab PO QAM albuterol sulfate [Ventolin HFA] 90 mcg/actuation HFA aerosol inhaler 2 puff INH Q6H PRN (Reason: shortness of breath) Qty: 18 5RF Patient Comments: Patient has inhaler, has not used in a year. famotidine [Pepcid] 40 mg tablet 40 mg PO DAILY PRN (Reason: gerd) Krames/Other Patient Handouts: Healthy Meals for Diabetes Admission Data Admit Date/Time: 05/10/23 08:23 Attending Provider: Kev Courtney Admit Provider: Kev Courtney Primary Care Provider: Sherly Ahmadi Other Providers: [facility]
[2023-05-11] MEDS: MULTIVITAMIN TAB PO SCH (08:27)
[2023-05-11] MEDS: INSULIN ASPART PER UNIT CHARGE SC SCH ×2 (08:27→11:52)
[2023-05-11] MEDS: oxyCODONE HCL IR 5 MG TAB (IMMEDIATE RELEASE) PO PRN (08:30)
== END 2023-05-11 12:43 | disposition home health service (06) ==
LOC: ASU 05:15 → 3E 05:15